=== PATIENT | female | born 1950 | race African-American/Black ===

== ENCOUNTER 2018-04-08 23:51 | Inpatient (IN) | payer MEDICARE, MEDICAID ==
[~2018-04-08] VITALS: Ht 154.9 cm; Wt 72.5 kg
[2018-04-09] MEDS ORDERED: LABETALOL HCL 5 MG/ML ML 20ML VIAL IV ONE ×2 (00:30→02:30)
[2018-04-09 00:47] LABS: Basophils # (auto) 0.1 uL; Basophils % (auto) 0.8 % (0.0-2.0); Eosinophils # (auto) 0.3 uL; Eosinophils % (auto) 3.5 % (0.0-7.0); Hematocrit 41.7 % (36.0-46.0); Lymphocytes # (auto) 3.3 uL; Lymphocytes % (auto) 37.5 % (10.0-50.0); Mean Corpuscular Hemoglobin 30.8 pg (28.0-32.0); Mean Corpuscular Hgb Conc. 33.5 g/dL (32.0-36.0); Monocytes # (auto) 0.8 uL; Monocytes % (auto) 9.3 % (0.0-12.0); Neutrophils # (auto) 4.3 uL; Neutrophils % (auto) 48.9 % (37.0-80.0); Nucleated Red Blood Cells % 0.1 %; Platelet Count (auto) 300 10^3/uL (140-450); Red Blood Cells 4.53 10^6/uL (4.0-5.20); Red Cell Distribution Width 13.7 % (11.8-14.3); White Blood Cell 8.9 10^3/uL (4.4-10.8)
[2018-04-09 01:01] LABS: INR 0.88 (0.9-1.15); Partial Thromboplastin Time 29.1 sec (23.78-33.04); Prothrombin Time 9.5 sec (9.27-12.13)
[2018-04-09 01:02] LABS: Alanine Aminotransferase 18 U/L (13-56); Albumin 3.6 g/dL (3.4-5.0); Anion Gap 10 (5-15); Aspartate Aminotransferase 10 U/L (15-37); BUN/Creatinine Ratio 16.4; Blood Urea Nitrogen 19 mg/dL (7-18); Calcium 8.6 mg/dL (8.5-10.1); Carbon Dioxide 25 mmol/L (21-32); Chloride 105 mmol/L (98-107); GFR African American 60 mL/min; GFR Non-African American 50 mL/min; Glucose 130 mg/dL (74-106); Potassium 3.4 mmol/L (3.5-5.1); Sodium 140 mmol/L (136-145)
[2018-04-09 01:07] LABS: Alkaline Phosphatase 104 U/L (45-117); Bilirubin, Total 0.3 mg/dL (0.2-1.0); Total Protein 8.1 g/dL (6.4-8.2)
[2018-04-09] MEDS ORDERED: ONDANSETRON HCL 4 MG/2 ML VIAL IV ONE (02:30)
[2018-04-09 03:23] LABS: Urine Bacteria NONE SEEN /hpf (None Seen); Urine Blood Negative /uL (Negative); Urine Specific Gravity 1.011 (1.001-1.035); Urine WBC <1 /hpf (0 - 5)
[2018-04-09 03:30] LABS: Amylase 35 U/L (25-115); Lipase 60 U/L (73-393)
[2018-04-09] MEDS ORDERED: NITROGLYCERIN 0.4 MG SL TAB SL PRN (04:30)
[2018-04-09] MEDS ORDERED: ONDANSETRON HCL 4 MG/2 ML VIAL IV PRN (04:30)
[2018-04-09] MEDS ORDERED: cloNIDine HCL 0.1 MG TAB PO PRN (04:30)
[2018-04-09] MEDS ORDERED: MORPHINE SULFATE 4 MG/ML SYR/VIAL IV PRN (04:30)
[2018-04-09] MEDS ORDERED: POTASSIUM CHL 20 Meq TABLET PO ONE (04:30)
[2018-04-09] MEDS ORDERED: TEMAZEPAM 15 MG CAP PO PRN (04:30)
[2018-04-09] MEDS: ACETAMINOPHEN 325 MG TAB PO PRN (06:12)
[2018-04-09] MEDS: HYDROcodone-ACET 5/325MG TAB PO PRN ×2 (09:14→17:54)
[2018-04-09] MEDS ORDERED: DEXTROSE (50%) 50ML SYRG IV PRN (09:45)
[2018-04-09] MEDS: HCTZ 25 MG TAB PO SCH (10:30)
[2018-04-09] MEDS: POTASSIUM CHL 10 Meq TABLET PO SCH (10:31)
[2018-04-09] MEDS: ENOXAPARIN SOD 40 MG/0.4 ML SYRINGE SC SCH (10:31)
[2018-04-09 10:39] LABS: Cholesterol 181 mg/dL (< 200); Triglycerides 80 mg/dL (< 150)
[2018-04-09 10:41] LABS: HDL Cholesterol 40 mg/dL (40-59); LDL Cholesterol 137 mg/dL (< 100)
[2018-04-09] MEDS ORDERED: INFLUENZA QUAD 2018-2019 0.5 ML SYRG IM ONE (11:15)
[2018-04-09] MEDS ORDERED: PNEUMOCOCCAL VACC POLYS 25 MCG/0.5 ML VIAL IM ONE (11:15)
[2018-04-09] MEDS: ACCU-CHEK COMFORT CURVE STRIP VI SCH ×3 (11:20→21:41)
[2018-04-09] MEDS: InsuLIN REG 1unit/0.01ml Soln (100units/ml) SC SCH ×3 (11:20→21:46)
[2018-04-09] MEDS: cloNIDine HCL 0.1 MG TAB PO PRN ×2 (11:25→21:41)
[2018-04-09] MEDS ORDERED: AZITHROMYCIN 250 MG TAB PO ONE (11:30)
[2018-04-09 12:00] VITALS: BP 163/79
[2018-04-09 16:00] VITALS: BP 127/65
[2018-04-09] MEDS ORDERED: ASPirin 81 mg TAB PO SCH (16:30)
[2018-04-09 21:30] VITALS: BP 156/75
[2018-04-09] MEDS: ATORVASTATIN 20 MG TAB PO SCH (21:40)
[2018-04-10 05:00] VITALS: BP 116/70
[2018-04-10 05:38] LABS: Basophils # (auto) 0.1 uL; Basophils % (auto) 0.9 % (0.0-2.0); Eosinophils # (auto) 0.2 uL; Eosinophils % (auto) 3.8 % (0.0-7.0); Hematocrit 38.7 % (36.0-46.0); Hemoglobin 13.1 g/dL (12.2-16.2); Lymphocytes # (auto) 2.3 uL; Lymphocytes % (auto) 34.9 % (10.0-50.0); Mean Corpuscular Hemoglobin 31.7 pg (28.0-32.0); Mean Corpuscular Hgb Conc. 33.9 g/dL (32.0-36.0); Mean Corpuscular Volume 93.6 fL (80.0-100.0); Monocytes # (auto) 0.5 uL; Monocytes % (auto) 8.3 % (0.0-12.0); Neutrophils # (auto) 3.4 uL; Neutrophils % (auto) 52.1 % (37.0-80.0); Nucleated Red Blood Cells % 0.2 %; Platelet Count (auto) 254 10^3/uL (140-450); Red Blood Cells 4.14 10^6/uL (4.0-5.20); Red Cell Distribution Width 13.8 % (11.8-14.3); White Blood Cell 6.6 10^3/uL (4.4-10.8)
[2018-04-10 06:01] LABS: Anion Gap 6 (5-15); Blood Urea Nitrogen 13 mg/dL (7-18); Calcium 8.4 mg/dL (8.5-10.1); Carbon Dioxide 28 mmol/L (21-32); Chloride 104 mmol/L (98-107); Glucose 97 mg/dL (74-106); Potassium 4.4 mmol/L (3.5-5.1); Sodium 138 mmol/L (136-145)
[2018-04-10 06:06] LABS: Alanine Aminotransferase 16 U/L (13-56); Alkaline Phosphatase 86 U/L (45-117); Aspartate Aminotransferase 27 U/L (15-37); BUN/Creatinine Ratio 12.7; Bilirubin, Total 0.5 mg/dL (0.2-1.0); GFR African American 70 mL/min; GFR Non-African American 58 mL/min; Total Protein 7.1 g/dL (6.4-8.2)
[2018-04-10] MEDS: ACCU-CHEK COMFORT CURVE STRIP VI SCH ×4 (06:09→21:09)
[2018-04-10] MEDS: InsuLIN REG 1unit/0.01ml Soln (100units/ml) SC SCH ×4 (06:11→21:13)
[2018-04-10 09:00] VITALS: BP 133/91
[2018-04-10] MEDS: AZITHROMYCIN 250 MG TAB PO SCH (09:48)
[2018-04-10] MEDS: POTASSIUM CHL 10 Meq TABLET PO SCH (09:48)
[2018-04-10] MEDS: HCTZ 25 MG TAB PO SCH (09:49)
[2018-04-10] MEDS: ENOXAPARIN SOD 40 MG/0.4 ML SYRINGE SC SCH (09:49)
[2018-04-10] MEDS: ASPirin 325 MG TAB PO SCH (09:49)
[2018-04-10] MEDS ORDERED: LEVOTHYROXINE SODIUM 112 MCG TAB PO ONE (11:45)
[2018-04-10 13:00] VITALS: BP 130/84
[2018-04-10 16:13] VITALS: BP 149/70
[2018-04-10] MEDS: ATORVASTATIN 20 MG TAB PO SCH (21:04)
[2018-04-10 22:00] VITALS: BP 113/77
[2018-04-11 05:00] VITALS: BP 152/61
[2018-04-11] MEDS: ACCU-CHEK COMFORT CURVE STRIP VI SCH ×3 (05:46→16:52)
[2018-04-11] MEDS: InsuLIN REG 1unit/0.01ml Soln (100units/ml) SC SCH ×3 (05:56→16:52)
[2018-04-11] MEDS ORDERED: LEVOTHYROXINE SODIUM 112 MCG TAB PO SCH ×2 (07:00)
[2018-04-11 09:00] VITALS: BP 158/76
[2018-04-11] MEDS: HCTZ 25 MG TAB PO SCH (09:11)
[2018-04-11] MEDS: POTASSIUM CHL 10 Meq TABLET PO SCH (09:11)
[2018-04-11] MEDS: ASPirin 325 MG TAB PO SCH (09:11)
[2018-04-11] MEDS: ENOXAPARIN SOD 40 MG/0.4 ML SYRINGE SC SCH (09:12)
[2018-04-11] MEDS: ACETAMINOPHEN 325 MG TAB PO PRN (09:12)
[2018-04-11] MEDS: AZITHROMYCIN 250 MG TAB PO SCH (09:12)
[2018-04-11] MEDS: HYDROcodone-ACET 5/325MG TAB PO PRN (11:10)
[2018-04-11 13:00] VITALS: BP 153/68
[2018-04-11 16:22] VITALS: BP 153/68
== END 2018-04-11 18:15 | disposition home health service (06) | DRG 65 ==
LOC: ER 23:53 → TELE 23:54 → TELE-CENTR 04-09 08:50
PROVIDERS: ADMIT Nurse Practitioner; ATTEND Family Medicine
DX: I63.512 Cerebral infarction due to unspecified occlusion or stenosis of left middle cerebral artery (principal); I16.1 Hypertensive emergency; I24.8 Other forms of acute ischemic heart disease; I63.81 Other cerebral infarction due to occlusion or stenosis of small artery; E11.22 Type 2 diabetes mellitus with diabetic chronic kidney disease; I25.119 Atherosclerotic heart disease of native coronary artery with unspecified angina pectoris; E87.6 Hypokalemia; E11.21 Type 2 diabetes mellitus with diabetic nephropathy; M15.9 Polyosteoarthritis, unspecified; I12.9 Hypertensive chronic kidney disease with stage 1 through stage 4 chronic kidney disease, or unspecified chronic kidney disease; R47.1 Dysarthria and anarthria; N18.3 Chronic kidney disease, stage 3 (moderate); J32.0 Chronic maxillary sinusitis; E03.9 Hypothyroidism, unspecified; E78.00 Pure hypercholesterolemia, unspecified; R29.701 NIHSS score 1; Z79.82 Long term (current) use of aspirin; Z88.1 Allergy status to other antibiotic agents; Z23 Encounter for immunization
CPT/HCPCS: 36415; 70450; 70551; 80053; 80061; 81001; 82150; 82962; 83036; 83690; 83880; 84443; 84484; 85025; 85610; 85730; 87040; 87070; 90674; 93005; 93306; 93886; 94761; 96374; 96375; G0378; J1815; J2405

== ENCOUNTER 2018-04-17 15:26 | Inpatient (IN) | payer MEDICARE, MEDICAID ==
[~2018-04-17] VITALS: Ht 154.9 cm; Wt 109.8 kg
[2018-04-17] MEDS ORDERED: ACETAMINOPHEN 500 MG TAB PO PRN (16:45)
[2018-04-17] MEDS ORDERED: KETOROLAC TROMETH 30 MG/ML 1ML VIAL IV PRN (16:45)
[2018-04-17] MEDS ORDERED: LORazepam 0.5 MG TAB PO PRN (16:45)
[2018-04-17] MEDS ORDERED: TEMAZEPAM 15 MG CAP PO PRN (16:45)
[2018-04-17] MEDS ORDERED: ONDANSETRON HCL 4 MG/2 ML VIAL IV PRN (16:45)
[2018-04-17] MEDS ORDERED: LACTULOSE 20Gm/30ML SOLN PO PRN (16:45)
[2018-04-17] MEDS ORDERED: DEXTROSE (50%) 50ML SYRG IV PRN (16:45)
[2018-04-17] MEDS ORDERED: LABETALOL HCL 5 MG/ML ML 20ML VIAL IV PRN (16:45)
[2018-04-17] MEDS ORDERED: traMADol HCL 50 MG TAB PO PRN (16:45)
[2018-04-17] MEDS ORDERED: MORPHINE SULFATE 4 MG/ML SYR/VIAL IV PRN (16:45)
[2018-04-17] MEDS ORDERED: NITROGLYCERIN 0.4 MG SL TAB SL PRN (16:45)
[2018-04-17] MEDS: InsuLIN REG 1unit/0.01ml Soln (100units/ml) SC SCH ×2 (17:00→22:00)
[2018-04-17 17:02] LABS: Basophils # (auto) 0.1 uL; Basophils % (auto) 0.6 % (0.0-2.0); Eosinophils # (auto) 0.3 uL; Eosinophils % (auto) 2.9 % (0.0-7.0); Hematocrit 42.2 % (36.0-46.0); Hemoglobin 14.1 g/dL (12.2-16.2); Lymphocytes # (auto) 2.3 uL; Lymphocytes % (auto) 22.8 % (10.0-50.0); Mean Corpuscular Hemoglobin 30.8 pg (28.0-32.0); Mean Corpuscular Hgb Conc. 33.5 g/dL (32.0-36.0); Mean Corpuscular Volume 91.9 fL (80.0-100.0); Monocytes # (auto) 0.8 uL; Monocytes % (auto) 7.9 % (0.0-12.0); Neutrophils # (auto) 6.6 uL; Neutrophils % (auto) 65.8 % (37.0-80.0); Nucleated Red Blood Cells % 0.1 %; Platelet Count (auto) 278 10^3/uL (140-450); Red Blood Cells 4.59 10^6/uL (4.0-5.20); Red Cell Distribution Width 13.4 % (11.8-14.3); White Blood Cell 10.1 10^3/uL (4.4-10.8)
[2018-04-17] MEDS: ACCU-CHEK COMFORT CURVE STRIP VI SCH ×2 (17:05→22:00)
[2018-04-17 17:18] LABS: Albumin 3.4 g/dL (3.4-5.0); BUN/Creatinine Ratio 15.2; Calcium 8.7 mg/dL (8.5-10.1); Potassium 3.4 mmol/L (3.5-5.1)
[2018-04-17 17:20] LABS: Bilirubin, Total 0.3 mg/dL (0.2-1.0)
[2018-04-17 17:26] LABS: Folate (Folic Acid) 6.31 ng/mL (5.38-24)
[2018-04-17 18:34] LABS: INR 0.93 (0.9-1.15); Partial Thromboplastin Time 30.9 sec (23.78-33.04)
[2018-04-17 22:24] VITALS: BP 183/73
[2018-04-17] MEDS: ATORVASTATIN 20 MG TAB PO SCH (22:55)
[2018-04-17] MEDS: METOPROLOL TARTRATE 50 MG TAB PO SCH (22:56)
[2018-04-17 23:00] VITALS: BP 183/73
[2018-04-18 03:00] VITALS: BP 137/69
[2018-04-18 03:54] LABS: Urine Bacteria NONE SEEN /hpf (None Seen); Urine Blood Negative /uL (Negative); Urine Specific Gravity 1.012 (1.001-1.035); Urine WBC <1 /hpf (0 - 5)
[2018-04-18 04:14] LABS: Alcohol, Urine < 3.0 mg/dL (0-5); Amphetamine Screen, Urine NEGATIVE (NEGATIVE); Barbiturate Scree,Urine NEGATIVE (NEGATIVE); Benzodiazephine Screen, Urine NEGATIVE (NEGATIVE); Cannabinoid Screen, Urine NEGATIVE (NEGATIVE); Cocaine Screen, Urine NEGATIVE (NEGATIVE); Opiate Scree,Urine NEGATIVE (NEGATIVE); Phencyclidine Screen, Urine NEGATIVE (NEGATIVE)
[2018-04-18 05:00] VITALS: BP 141/60
[2018-04-18] MEDS: LEVOTHYROXINE SODIUM 112 MCG TAB PO SCH (06:12)
[2018-04-18] MEDS: InsuLIN REG 1unit/0.01ml Soln (100units/ml) SC SCH ×4 (06:15→22:44)
[2018-04-18] MEDS: ACCU-CHEK COMFORT CURVE STRIP VI SCH ×4 (06:15→22:43)
[2018-04-18 09:00] VITALS: BP 132/53
[2018-04-18] MEDS: ENOXAPARIN SOD 40 MG/0.4 ML SYRINGE SC SCH (09:13)
[2018-04-18] MEDS: ASPirin-EC 325mg tab PO SCH (09:13)
[2018-04-18] MEDS: METOPROLOL TARTRATE 50 MG TAB PO SCH ×2 (09:13→21:23)
[2018-04-18] MEDS: PANTOPRAZOLE 40 MG TAB PO SCH (09:13)
[2018-04-18 13:00] VITALS: BP 145/69
[2018-04-18 17:00] VITALS: BP 155/63
[2018-04-18] MEDS: ATORVASTATIN 20 MG TAB PO SCH (21:16)
[2018-04-18 22:09] VITALS: BP 156/83
[2018-04-19 05:29] VITALS: BP 141/69
[2018-04-19] MEDS: LEVOTHYROXINE SODIUM 112 MCG TAB PO SCH (06:14)
[2018-04-19] MEDS: InsuLIN REG 1unit/0.01ml Soln (100units/ml) SC SCH ×4 (06:22→22:00)
[2018-04-19] MEDS: ACCU-CHEK COMFORT CURVE STRIP VI SCH ×4 (06:24→22:00)
[2018-04-19 09:00] VITALS: BP 138/60
[2018-04-19] MEDS: METOPROLOL TARTRATE 50 MG TAB PO SCH ×2 (09:51→22:41)
[2018-04-19] MEDS: PANTOPRAZOLE 40 MG TAB PO SCH (09:51)
[2018-04-19] MEDS: ASPirin-EC 325mg tab PO SCH (09:51)
[2018-04-19] MEDS: ENOXAPARIN SOD 40 MG/0.4 ML SYRINGE SC SCH (09:52)
[2018-04-19 13:00] VITALS: BP 137/63
[2018-04-19 17:00] VITALS: BP 158/74
[2018-04-19 22:00] VITALS: BP 145/60
[2018-04-19] MEDS: ATORVASTATIN 20 MG TAB PO SCH (22:40)
[2018-04-20 05:00] VITALS: BP 128/94
[2018-04-20] MEDS: LEVOTHYROXINE SODIUM 112 MCG TAB PO SCH (06:56)
[2018-04-20] MEDS: ACCU-CHEK COMFORT CURVE STRIP VI SCH ×4 (07:00→22:00)
[2018-04-20] MEDS: InsuLIN REG 1unit/0.01ml Soln (100units/ml) SC SCH ×4 (07:00→22:00)
[2018-04-20 09:00] VITALS: BP 138/70
[2018-04-20] MEDS: ASPirin-EC 325mg tab PO SCH (09:39)
[2018-04-20] MEDS: PANTOPRAZOLE 40 MG TAB PO SCH (09:40)
[2018-04-20] MEDS: METOPROLOL TARTRATE 50 MG TAB PO SCH ×2 (09:40→21:37)
[2018-04-20] MEDS: ENOXAPARIN SOD 40 MG/0.4 ML SYRINGE SC SCH (09:40)
[2018-04-20 13:00] VITALS: BP 142/60
[2018-04-20 17:00] VITALS: BP 138/65
[2018-04-20] MEDS: ATORVASTATIN 20 MG TAB PO SCH (21:37)
[2018-04-20 22:00] VITALS: BP 158/81
[2018-04-21 05:00] VITALS: BP 159/71
[2018-04-21 06:22] LABS: Basophils # (auto) 0 uL; Basophils % (auto) 0.7 % (0.0-2.0); Eosinophils # (auto) 0.4 uL; Hematocrit 39.3 % (36.0-46.0); Hemoglobin 13.2 g/dL (12.2-16.2); Lymphocytes # (auto) 2.3 uL; Lymphocytes % (auto) 32.7 % (10.0-50.0); Mean Corpuscular Hemoglobin 31.1 pg (28.0-32.0); Mean Corpuscular Hgb Conc. 33.5 g/dL (32.0-36.0); Mean Corpuscular Volume 92.9 fL (80.0-100.0); Monocytes # (auto) 0.5 uL; Monocytes % (auto) 7.1 % (0.0-12.0); Neutrophils # (auto) 3.7 uL; Neutrophils % (auto) 53.5 % (37.0-80.0); Nucleated Red Blood Cells % 0.1 %; Platelet Count (auto) 286 10^3/uL (140-450); Red Blood Cells 4.23 10^6/uL (4.0-5.20); Red Cell Distribution Width 13.2 % (11.8-14.3)
[2018-04-21 06:23] LABS: INR 0.91 (0.9-1.15); Partial Thromboplastin Time 30.3 sec (23.78-33.04); Prothrombin Time 9.8 sec (9.27-12.13)
[2018-04-21] MEDS: LEVOTHYROXINE SODIUM 112 MCG TAB PO SCH (06:33)
[2018-04-21] MEDS: ACCU-CHEK COMFORT CURVE STRIP VI SCH ×4 (06:33→22:00)
[2018-04-21] MEDS: InsuLIN REG 1unit/0.01ml Soln (100units/ml) SC SCH ×4 (06:34→22:00)
[2018-04-21 08:55] VITALS: BP 181/91
[2018-04-21] MEDS: ASPirin-EC 325mg tab PO SCH (09:40)
[2018-04-21] MEDS: PANTOPRAZOLE 40 MG TAB PO SCH (09:40)
[2018-04-21] MEDS: METOPROLOL TARTRATE 50 MG TAB PO SCH ×2 (09:41→22:00)
[2018-04-21] MEDS: ENOXAPARIN SOD 40 MG/0.4 ML SYRINGE SC SCH (10:00)
[2018-04-21 13:00] VITALS: BP_SYST 153; BP_SYST 194; BP_DIAS 74; BP_DIAS 86
[2018-04-21] MEDS ORDERED: FLUMAZENIL 0.1 MG/ML INJ 10ML MDV IV ONE (13:00)
[2018-04-21] MEDS ORDERED: MIDAZOLAM HCL 1MG/1ML-2 ML VIAL IV ONE (13:00)
[2018-04-21 17:00] VITALS: BP 139/66
[2018-04-21 22:00] VITALS: BP 155/68
[2018-04-21] MEDS: ATORVASTATIN 20 MG TAB PO SCH (22:00)
[2018-04-22 05:00] VITALS: BP 135/66
[2018-04-22] MEDS: ACCU-CHEK COMFORT CURVE STRIP VI SCH ×2 (06:40→11:27)
[2018-04-22] MEDS: LEVOTHYROXINE SODIUM 112 MCG TAB PO SCH (06:41)
[2018-04-22] MEDS: InsuLIN REG 1unit/0.01ml Soln (100units/ml) SC SCH ×2 (06:41→11:41)
[2018-04-22 08:00] VITALS: BP 168/75
[2018-04-22 09:00] VITALS: BP 168/75
[2018-04-22] MEDS: ASPirin-EC 325mg tab PO SCH ×2 (09:14→09:17)
[2018-04-22] MEDS: ENOXAPARIN SOD 40 MG/0.4 ML SYRINGE SC SCH (09:14)
[2018-04-22] MEDS: PANTOPRAZOLE 40 MG TAB PO SCH (09:15)
[2018-04-22] MEDS: METOPROLOL TARTRATE 50 MG TAB PO SCH (09:15)
[2018-04-22] MEDS ORDERED: CLOPIDOGREL BISULFATE 75 MG TAB PO SCH (10:00)
[2018-04-22] MEDS ORDERED: ASPI325T4 PO (12:07)
[2018-04-22] MEDS ORDERED: ATO40T PO (12:07)
[2018-04-22 13:00] VITALS: BP 141/65
[2018-04-22 13:12] VITALS: BP 141/65
== END 2018-04-22 15:10 | disposition home health service (06) | DRG 304 ==
LOC: ER 15:32 → TELE 16:38 → TELE-CENTR 21:38
PROVIDERS: ADMIT Internal Medicine; ATTEND Family Medicine
PROC: B246ZZ4 Ultrasonography of Right and Left Heart, Transesophageal (ICD-10-PCS; principal; 2018-04-21)
DX: I16.0 Hypertensive urgency (principal); I63.9 Cerebral infarction, unspecified; I69.351 Hemiplegia and hemiparesis following cerebral infarction affecting right dominant side; Z68.42 Body mass index [BMI] 45.0-49.9, adult; I25.10 Atherosclerotic heart disease of native coronary artery without angina pectoris; E78.5 Hyperlipidemia, unspecified; E66.01 Morbid (severe) obesity due to excess calories; E03.9 Hypothyroidism, unspecified; H40.9 Unspecified glaucoma; J32.0 Chronic maxillary sinusitis; E11.9 Type 2 diabetes mellitus without complications; I10 Essential (primary) hypertension; E87.6 Hypokalemia; E78.00 Pure hypercholesterolemia, unspecified; I07.1 Rheumatic tricuspid insufficiency; Z79.02 Long term (current) use of antithrombotics/antiplatelets; Z82.49 Family history of ischemic heart disease and other diseases of the circulatory system; Z83.3 Family history of diabetes mellitus; Z81.1 Family history of alcohol abuse and dependence; Z81.8 Family history of other mental and behavioral disorders; Z91.19 Patient's noncompliance with other medical treatment and regimen; Z98.51 Tubal ligation status; Z90.89 Acquired absence of other organs; Z79.82 Long term (current) use of aspirin; Z88.8 Allergy status to other drugs, medicaments and biological substances
CPT/HCPCS: 36415; 70450; 70551; 71045; 80053; 80307; 81001; 82550; 82746; 82962; 83036; 83735; 84443; 85025; 85610; 85652; 85730; 86850; 86900; 86901; 87081; 93005; 93312; 94761; 99152; G0378; J1815; J1885; J2250

== ENCOUNTER → 2018-05-06 | Outpatient (CLI) | payer MEDICARE, MEDICAID ==
[~2018-05-06] MED LIST: ASPI325T4 PO; ATO40T PO; IOHEXOL 350 MG/ML 100ML IJ ONE; SODIUM CHLORIDE 0.9% 1,000 ML IV SCH
[2018-05-06 09:11] VITALS: BP 178/65
[2018-05-06 10:15] VITALS: BP 108/63
== END | disposition home or self-care (01) ==
LOC: Rad HDHVI 08:59
PROVIDERS: ATTEND Internal Medicine Cardiovascular Disease
DX: I66.9 Occlusion and stenosis of unspecified cerebral artery (principal); I12.9 Hypertensive chronic kidney disease with stage 1 through stage 4 chronic kidney disease, or unspecified chronic kidney disease; E11.22 Type 2 diabetes mellitus with diabetic chronic kidney disease; N18.3 Chronic kidney disease, stage 3 (moderate); E11.21 Type 2 diabetes mellitus with diabetic nephropathy; I25.10 Atherosclerotic heart disease of native coronary artery without angina pectoris; J32.0 Chronic maxillary sinusitis; E66.01 Morbid (severe) obesity due to excess calories; E78.5 Hyperlipidemia, unspecified; E03.9 Hypothyroidism, unspecified; E78.00 Pure hypercholesterolemia, unspecified; M17.11 Unilateral primary osteoarthritis, right knee; I07.1 Rheumatic tricuspid insufficiency; Z68.42 Body mass index [BMI] 45.0-49.9, adult; Z79.02 Long term (current) use of antithrombotics/antiplatelets; Z79.82 Long term (current) use of aspirin; Z86.73 Personal history of transient ischemic attack (TIA), and cerebral infarction without residual deficits
CPT/HCPCS: 70496; 96360; G0463; J7030; Q9967

== ENCOUNTER → 2018-05-20 | Outpatient (CLI) | payer MEDICARE, MEDICAID ==
[~2018-05-20] MED LIST changes: -IOHEXOL 350 MG/ML 100ML IJ ONE; -SODIUM CHLORIDE 0.9% 1,000 ML IV SCH
== END | disposition home or self-care (01) ==
LOC: LAB 12:03
PROVIDERS: ATTEND Internal Medicine
DX: E03.9 Hypothyroidism, unspecified (principal)
CPT/HCPCS: 36415; 84443

== ENCOUNTER → 2018-06-04 | Outpatient (CLI) | payer MEDICARE, MEDICAID ==
[~2018-06-04] VITALS: Ht 154.9 cm; Wt 99.8 kg
[~2018-06-04] MED LIST changes: +ADENOSINE 84 MG in GIVE UN-DILUTED 0 ML IV ONE; +ADENOSINE 90 MG/30 ML INJ IV ONE
== END | disposition home or self-care (01) ==
LOC: Rad HDHVI 13:41
PROVIDERS: ATTEND Internal Medicine Cardiovascular Disease
DX: I10 Essential (primary) hypertension (principal); I63.9 Cerebral infarction, unspecified; E11.9 Type 2 diabetes mellitus without complications
CPT/HCPCS: 78452; 93005; 96374; 96375; A9500; J0153

== ENCOUNTER → 2018-06-23 | Outpatient (CLI) | payer MEDICARE, MEDICAID ==
[~2018-06-23] MED LIST changes: -ADENOSINE 84 MG in GIVE UN-DILUTED 0 ML IV ONE; -ADENOSINE 90 MG/30 ML INJ IV ONE
== END | disposition home or self-care (01) ==
LOC: LAB 10:53
PROVIDERS: ATTEND Internal Medicine
DX: Z12.11 Encounter for screening for malignant neoplasm of colon (principal)
CPT/HCPCS: 82270

== ENCOUNTER → 2018-06-23 | Outpatient (CLI) | payer MEDICARE, MEDICAID ==
[2018-06-23 11:15] VITALS: BP_SYST 150; BP_SYST 159; BP_DIAS 63; BP_DIAS 68
--- NOTE | 2018-06-23 11:15 | NUR ---
EECP This will be patient 1st day of EECP. EKG has been completed and sign of by Zena MOSHER. Patient has a Hx of: CVA SOB DIABETES First BP taken on her Right arm is at 150/63 with a heart rate of 68bpm. Patient states she did not take her BP medication this AM. At this time patient denies any other symptoms or discomfort. First Pleth at 1 min into Tx.EECP pressure will slowly be increase up to 120 if tolerable. 2nd pleth at 36 min into Tx patient is tolerating Tx pressure at 120 well.Patient denies any symptoms or discomfort at this time.Monitor shows excellent pleth valves with a heart rate of 67bpm. At 37 min into Tx patient needs a restroom break. 3rd and final pleth at 56 min into Tx patient is doing well at this time.Monitor shows Arrhythmias with a heart rate of 68bpm.Patient denies any chest pain,SOB,Fatigue at this time.Patient has 4 min left till her Tx is completed for the day. Last BP check on her Left arm is at 159/68 with a heart rate of 64bpm. Patient will follow up with CHF.
[2018-06-23 12:29] VITALS: BP 150/63
[2018-06-23 12:43] VITALS: BP 159/68
--- NOTE | 2018-06-23 12:43 | NUR ---
EDUCATED ON ARGINEXT SUPPLEMENT FOR BEGINNING EECP THERAPY. BASELINE EKG DONE. GIVEN ARGINEXT 2 SCOOPS WITH WARM WATER. EDUCATION DONE BY GOPI MOSHER. ADDITIONAL QUESTIONS DENIED. Discharge Instructions See e-MAR for any mediations given with this visit. Patient education given on disease process. Patient verbalized understanding. Previous labs reviewed. Patient discharged in stable condition with after care instructions and follow up appointment.
== END | disposition home or self-care (01) ==
LOC: CHF HDHVI 10:49
PROVIDERS: ATTEND Internal Medicine Cardiovascular Disease
DX: I25.728 Atherosclerosis of autologous artery coronary artery bypass graft(s) with other forms of angina pectoris (principal); I11.0 Hypertensive heart disease with heart failure; I50.42 Chronic combined systolic (congestive) and diastolic (congestive) heart failure; R06.02 Shortness of breath; E11.9 Type 2 diabetes mellitus without complications; I63.9 Cerebral infarction, unspecified
CPT/HCPCS: 93005; G0166; G0463

== ENCOUNTER → 2018-06-26 | Outpatient (CLI) | payer MEDICARE, MEDICAID ==
[2018-06-26 10:54] VITALS: BP_SYST 140; BP_SYST 158; BP_DIAS 66; BP_DIAS 80
--- NOTE | 2018-06-26 11:04 | NUR ---
EECP Tx# 2 First BP check on left arm is at 158/66 with a heart rate of 56bpm. Patient took her medications 1 hour before coming in to her Tx. Arginext has been taken before coming in to her Tx. Patient c/o Fatigue 08/24. 1st pleth at 1 min into Tx patient EECP pressure will increase if tolerable. At 10 min into Tx patient requested for Pressure to be reduce patient can't tolerate Tx pressure at 200.EECP pressure will be reduce to 160 if tolerable.We will continue to monitor patient through her Tx if any changes occur. 2nd pleth at 28 min into Tx patient is tolerating Tx pressure at 160 well with no discomfort at this time.Monitor shows excellent pleth valves with a heart rate of 61bpm. At 29 min into Tx patient needs a restroom break. 3rd and final pleth at 51 min into Tx patient is doing well with Tx pressure at 160 .Monitor shows excellent pleth valves with a heart rate of 58bpm.Patient has 9 min left till her Tx is completed for the day. Last BP check on her left arm is at 140/80 with a HR of 62bpm. Patient denies any symptoms or discomfort at this time.
== END | disposition home or self-care (01) ==
LOC: CHF HDHVI 10:43
PROVIDERS: ATTEND Internal Medicine Cardiovascular Disease
DX: I25.728 Atherosclerosis of autologous artery coronary artery bypass graft(s) with other forms of angina pectoris (principal); I11.0 Hypertensive heart disease with heart failure; I50.42 Chronic combined systolic (congestive) and diastolic (congestive) heart failure; E11.9 Type 2 diabetes mellitus without complications; Z86.73 Personal history of transient ischemic attack (TIA), and cerebral infarction without residual deficits
CPT/HCPCS: G0166

== ENCOUNTER → 2018-07-21 | Outpatient (CLI) | payer MEDICARE, MEDICAID ==
[2018-07-21 09:21] VITALS: BP_SYST 139; BP_SYST 140; BP_DIAS 60; BP_DIAS 66
--- NOTE | 2018-07-21 09:21 | NUR ---
EECP Tx# 3 First BP check on his Left arm is at 139/60 with a heart rate of 72bpm. Patient denies any symptoms or discomfort at this time. Arginext was taken before coming in to her Tx. 1st pleth at 1 min into Tx EECP pressure will slowly increase if tolerable. 2nd pleth at 24 min into Tx patient is tolerating Tx pressure at 200 well.Patient denies any symptoms or discomfort at this time.Monitor shows good pleth valves with a heart rate of 72bpm. 3rd and final pleth at 42 min into Tx patient is doing well at this time.Monitor shows a good ekg and waveforms with good pleth valves and a heart rate of 74bpm. At 44 min into Tx patient requested Tx to stop.Daughter was picking her up.Per patient can't stay to complete Tx. Last BP and HR check on her left arm is at 140/66 with a heart rate of 71bpm. Patient denies any symptoms or discomfort at this time.
== END | disposition home or self-care (01) ==
LOC: CHF HDHVI 08:48
PROVIDERS: ATTEND Internal Medicine Cardiovascular Disease
DX: I25.728 Atherosclerosis of autologous artery coronary artery bypass graft(s) with other forms of angina pectoris (principal); I11.0 Hypertensive heart disease with heart failure; I50.42 Chronic combined systolic (congestive) and diastolic (congestive) heart failure; E11.9 Type 2 diabetes mellitus without complications; I63.9 Cerebral infarction, unspecified
CPT/HCPCS: G0166

== ENCOUNTER → 2018-07-23 | Outpatient (CLI) | payer MEDICARE, MEDICAID ==
[2018-07-23 09:29] VITALS: BP_SYST 143; BP_SYST 147; BP_DIAS 68; BP_DIAS 70
--- NOTE | 2018-07-23 09:29 | NUR ---
EECP Tx# 4 First BP check on his Left arm is at 147/68 with a heart rate of 65bpm. Patient denies any symptoms or discomfort at this time. Arginext was taken before coming in to her Tx. 1st pleth at 24 min into Tx EECP pressure will slowly increase if tolerable. 2nd pleth at 45 min into Tx Patient EECP pressure will decrease patient can't tolerate Tx pressure at 200 at this time.Monitor shows excellent pleth valves with a heart rate of 60bpm. Restroom break at 48 min into Tx. 3rd and final pleth at 57 min into Tx patient is doing well at this time.Patient is tolerating Tx pressure at 160 well with no complaints or discomfort at this time.Monitor shows a good ekg and waveforms with excellent pleth valves and a heart rate of 61bpm.Patient has 3 min left till her Tx is completed for the day. Last BP and HR check on her left arm is at 143/70 with a heart rate of 60bpm. Patient denies any symptoms or discomfort at this time.
== END | disposition home or self-care (01) ==
LOC: CHF HDHVI 09:10
PROVIDERS: ATTEND Internal Medicine Cardiovascular Disease
DX: I25.728 Atherosclerosis of autologous artery coronary artery bypass graft(s) with other forms of angina pectoris (principal); I11.0 Hypertensive heart disease with heart failure; I50.42 Chronic combined systolic (congestive) and diastolic (congestive) heart failure; I63.9 Cerebral infarction, unspecified; E11.9 Type 2 diabetes mellitus without complications
CPT/HCPCS: G0166

== ENCOUNTER → 2018-07-25 | Outpatient (CLI) | payer MEDICARE, MEDICAID ==
[2018-07-25 09:50] VITALS: BP_SYST 139; BP_SYST 140; BP_DIAS 57; BP_DIAS 62
--- NOTE | 2018-07-25 09:50 | NUR ---
EECP Tx# 5 First BP check on his Left arm is at 139/57 with a heart rate of 66bpm. Patient denies any symptoms or discomfort at this time. Arginext was taken before coming in to her Tx. 1st pleth at 1 min into Tx EECP pressure will slowly increase if tolerable. 2nd pleth at 25 min into Tx Patient is tolerating Tx pressure at 160 well with no discomfort at this time.Monitor shows a good ekg and waveforms with a heart rate of 70bpm. At 30 min into Tx patient requested Tx to be Stop early for Personal reasons. Tx stopped at 30 min into Tx. Last BP and HR check on left arm is at 140/62 with a heart rate of 64bpm. Patient denies any symptoms or discomfort at this time. Unable to record a 3rd pleth for this Tx. Last BP and HR check on left arm is at 140/62 with a heart rate of 64bpm. Patient denies any symptoms or discomfort at this time.
== END | disposition home or self-care (01) ==
LOC: CHF HDHVI 09:26
PROVIDERS: ATTEND Internal Medicine Cardiovascular Disease
DX: I25.728 Atherosclerosis of autologous artery coronary artery bypass graft(s) with other forms of angina pectoris (principal); I11.0 Hypertensive heart disease with heart failure; I50.42 Chronic combined systolic (congestive) and diastolic (congestive) heart failure; E11.9 Type 2 diabetes mellitus without complications; I63.9 Cerebral infarction, unspecified
CPT/HCPCS: G0166

== ENCOUNTER → 2018-07-28 | Outpatient (CLI) | payer MEDICARE, MEDICAID ==
[2018-07-28 09:03] VITALS: BP_SYST 130; BP_SYST 146; BP_DIAS 63; BP_DIAS 72
--- NOTE | 2018-07-28 09:03 | NUR ---
EECP Tx# 6 First BP check on his Left arm is at 130/63 with a heart rate of 73bpm. Patient denies any symptoms or discomfort at this time. Arginext was taken before coming in to her Tx. 1st pleth at 1 min into Tx EECP pressure will slowly increase if tolerable. 2nd pleth at 38 min into Tx Patient is tolerating Tx pressure at 160 well with no discomfort at this time.Monitor shows a good ekg and waveforms with a heart rate of 66bpm. 3rd and final pleth at 50 min into Tx monitor shows a good ekg and waveforms with a heart rate of 66bpm. Patient has 10 min left till his Tx is completed for the day. Last BP check on his Left arm is at 146/72 with a heart rate of 63bpm. Patient denies any symptoms or discomfort at this moment.
== END | disposition home or self-care (01) ==
LOC: CHF HDHVI 08:55
PROVIDERS: ATTEND Internal Medicine Cardiovascular Disease
DX: I25.728 Atherosclerosis of autologous artery coronary artery bypass graft(s) with other forms of angina pectoris (principal); I11.0 Hypertensive heart disease with heart failure; I50.42 Chronic combined systolic (congestive) and diastolic (congestive) heart failure; I63.9 Cerebral infarction, unspecified; E11.9 Type 2 diabetes mellitus without complications
CPT/HCPCS: G0166

== ENCOUNTER → 2018-08-01 | Outpatient (CLI) | payer MEDICARE, MEDICAID ==
[2018-08-01 09:34] VITALS: BP_SYST 136; BP_SYST 140; BP_DIAS 70; BP_DIAS 78
--- NOTE | 2018-08-01 09:34 | NUR ---
EECP Tx# 7 First BP check on his Left arm is at 136/70 with a heart rate of 62bpm. Patient denies any symptoms or discomfort at this time. Arginext was taken before coming in to her Tx. 1st pleth at 1 min into Tx EECP pressure will slowly increase if tolerable. 2nd pleth at 43 min into Tx Patient is tolerating Tx pressure at 160 well with no discomfort at this time.Patient at this time can't tolerate Tx higher than 160.Monitor shows excellent pleth valves with a heart rate of 62bpm. 3rd and final pleth at 55 min into Tx monitor shows a good ekg and waveforms with excellent pleth valves and a heart rate of 63bpm.Patient has 5 min left till her Tx is completed for the day. Last BP check on his Left arm is at 140/78 with a heart rate of 61bpm. Patient denies any symptoms or discomfort at this moment.
== END | disposition home or self-care (01) ==
LOC: Rad HDHVI 08:56
PROVIDERS: ATTEND Internal Medicine Cardiovascular Disease
DX: I25.728 Atherosclerosis of autologous artery coronary artery bypass graft(s) with other forms of angina pectoris (principal); I63.9 Cerebral infarction, unspecified; E11.9 Type 2 diabetes mellitus without complications; I11.0 Hypertensive heart disease with heart failure; I50.42 Chronic combined systolic (congestive) and diastolic (congestive) heart failure
CPT/HCPCS: G0166

== ENCOUNTER → 2018-08-04 | Outpatient (CLI) | payer MEDICARE, MEDICAID ==
[2018-08-04 08:57] VITALS: BP_SYST 134; BP_SYST 152; BP_DIAS 63; BP_DIAS 73
--- NOTE | 2018-08-04 09:00 | NUR ---
EECP Tx# 8 First BP check on his Left arm is at 152/73 with a heart rate of 67bpm. Patient denies any symptoms or discomfort at this time. Arginext was taken before coming in to her Tx. 1st pleth at 1 min into Tx EECP pressure will slowly increase if tolerable. 2nd pleth at 32 min into Tx Patient is tolerating Tx pressure at 160 well with no discomfort at this time.Patient at this time can't tolerate Tx higher than 160.Monitor shows a good ekg and waveforms with good pleth valves and a heart rate of 68bpm. 3rd and final pleth at 47 min into Tx monitor shows a good ekg and waveforms with good pleth valves and a heart rate of 67bpm.Patient has 13 min left till her Tx is completed for the day. Last BP check on his Left arm is at 134/63 with a heart rate of 64bpm. Patient denies any symptoms or discomfort at this moment.
== END | disposition home or self-care (01) ==
LOC: CHF HDHVI 08:52
PROVIDERS: ATTEND Internal Medicine Cardiovascular Disease
DX: I25.728 Atherosclerosis of autologous artery coronary artery bypass graft(s) with other forms of angina pectoris (principal); I11.0 Hypertensive heart disease with heart failure; I50.42 Chronic combined systolic (congestive) and diastolic (congestive) heart failure; E11.9 Type 2 diabetes mellitus without complications; I63.9 Cerebral infarction, unspecified
CPT/HCPCS: G0166

== ENCOUNTER → 2018-08-08 | Outpatient (CLI) | payer MEDICARE, MEDICAID ==
[2018-08-08 08:59] VITALS: BP_SYST 133; BP_SYST 141; BP_DIAS 67; BP_DIAS 78
--- NOTE | 2018-08-08 08:59 | NUR ---
EECP Tx# 9 First BP check on her Left arm is at 133/67 with a heart rate of 64bpm.Patient denies any chest pain,SOB,Fatigue or any other symptoms at this time.Arginext was taken before coming in to her Tx.Medications are the same no new changes at this time.Patient EECP pressure will slowly increase if tolerable. Patient is doing well with her Tx patient is tolerating Tx pressure at 160.Patient can't tolerate Tx pressure higher than 160 at this time.Patient denies any symptoms or discomfort at this moment. Monitor shows good pleth valves.Patient denies any symptoms or discomfort at this moment. Restroom break at 54 min into Tx.Patient has 6 min left till her Tx is completed for the day. Last BP check on her Left arm is at 141/78 with a heart rate of 63bpm. Patient denies any chest pain,SOB,Fatigue at this time.
== END | disposition home or self-care (01) ==
LOC: CHF HDHVI 08:53
PROVIDERS: ATTEND Internal Medicine Cardiovascular Disease
DX: I25.728 Atherosclerosis of autologous artery coronary artery bypass graft(s) with other forms of angina pectoris (principal); I63.9 Cerebral infarction, unspecified; E11.9 Type 2 diabetes mellitus without complications; I11.0 Hypertensive heart disease with heart failure; I50.42 Chronic combined systolic (congestive) and diastolic (congestive) heart failure; Z98.61 Coronary angioplasty status
CPT/HCPCS: G0166

== ENCOUNTER → 2018-08-11 | Outpatient (CLI) | payer MEDICARE, MEDICAID ==
[2018-08-11 09:10] VITALS: BP_SYST 136; BP_SYST 158; BP_DIAS 74; BP_DIAS 76
--- NOTE | 2018-08-11 09:10 | NUR ---
EECP Tx# 10 First BP check on her Right arm is at 158/74 with a heart rate of 74bpm.Patient denies any chest pain,SOB,Fatigue or any other symptoms at this time.Arginext was taken before coming in to her Tx.Medications are the same no new changes at this time.Patient EECP pressure will slowly increase if tolerable. Patient is doing well with her Tx patient is tolerating Tx pressure at 160.Patient can't tolerate Tx pressure higher than 160 at this time.Patient denies any symptoms or discomfort at this moment. Monitor shows a good ekg and waveforms with good pleth valves.Patient denies any symptoms or discomfort at this moment. Last BP check on her Left arm is at 136/76 with a heart rate of 74bpm. Patient denies any chest pain,SOB,Fatigue at this time.
== END | disposition home or self-care (01) ==
LOC: CHF HDHVI 08:58
PROVIDERS: ATTEND Internal Medicine Cardiovascular Disease
DX: I25.728 Atherosclerosis of autologous artery coronary artery bypass graft(s) with other forms of angina pectoris (principal); I11.0 Hypertensive heart disease with heart failure; I50.42 Chronic combined systolic (congestive) and diastolic (congestive) heart failure; I63.9 Cerebral infarction, unspecified; E11.9 Type 2 diabetes mellitus without complications
CPT/HCPCS: G0166

== ENCOUNTER → 2018-09-29 | Outpatient (CLI) | payer MEDICARE, MEDICAID ==
[2018-09-29 10:14] LABS: BUN/Creatinine Ratio 19.1; Calcium 8.8 mg/dL (8.5-10.1); Potassium 3.4 mmol/L (3.5-5.1)
== END | disposition home or self-care (01) ==
LOC: LAB 09:17
PROVIDERS: ATTEND Internal Medicine
DX: E03.9 Hypothyroidism, unspecified (principal); M54.2 Cervicalgia
CPT/HCPCS: 36415; 80048; 84443

== ENCOUNTER → 2018-11-11 | Outpatient (CLI) | payer MEDICARE, MEDICAID ==
[2018-11-11 09:43] LABS: Potassium 3.7 mmol/L (3.5-5.1)
[2018-11-11 09:50] LABS: Albumin 3.4 g/dL (3.4-5.0); Bilirubin, Total 0.5 mg/dL (0.2-1.0); Calcium 8.7 mg/dL (8.5-10.1); Total Protein 7.5 g/dL (6.4-8.2)
== END | disposition home or self-care (01) ==
LOC: LAB 07:49
PROVIDERS: ATTEND Internal Medicine
DX: E11.9 Type 2 diabetes mellitus without complications (principal); E03.9 Hypothyroidism, unspecified; I10 Essential (primary) hypertension
CPT/HCPCS: 36415; 80053; 80061; 82043

== ENCOUNTER → 2019-01-29 | Outpatient (CLI) | payer MEDICARE, MEDICAID ==
[2019-01-29 10:43] LABS: Basophils # (auto) 0 uL; Basophils % (auto) 0.9 % (0.0-2.0); Eosinophils # (auto) 0.2 uL; Eosinophils % (auto) 3.4 % (0.0-7.0); Hematocrit 40.5 % (36.0-46.0); Hemoglobin 13.6 g/dL (12.2-16.2); Lymphocytes # (auto) 1.6 uL; Lymphocytes % (auto) 30.4 % (10.0-50.0); Mean Corpuscular Hemoglobin 30.5 pg (28.0-32.0); Mean Corpuscular Hgb Conc. 33.6 g/dL (32.0-36.0); Mean Corpuscular Volume 90.8 fL (80.0-100.0); Monocytes # (auto) 0.3 uL; Monocytes % (auto) 6.3 % (0.0-12.0); Neutrophils # (auto) 3.1 uL; Nucleated Red Blood Cells % 0.2 %; Platelet Count (auto) 245 10^3/uL (140-450); Red Blood Cells 4.47 10^6/uL (4.0-5.20); Red Cell Distribution Width 13.3 % (11.8-14.3); White Blood Cell 5.2 10^3/uL (4.4-10.8)
[2019-01-29 11:07] LABS: Potassium 3.9 mmol/L (3.5-5.1)
[2019-01-29 11:20] LABS: Albumin 3.4 g/dL (3.4-5.0); BUN/Creatinine Ratio 20.2; Bilirubin, Total 0.6 mg/dL (0.2-1.0); CRP High Sensitivity 1.15 mg/dL (< 0.3); Calcium 8.9 mg/dL (8.5-10.1); Total Protein 7.9 g/dL (6.4-8.2); Uric Acid 7.1 mg/dL (2.6-6.0)
== END | disposition home or self-care (01) ==
LOC: LAB 09:54
PROVIDERS: ATTEND Internal Medicine
DX: E11.9 Type 2 diabetes mellitus without complications (principal); M17.0 Bilateral primary osteoarthritis of knee; M79.671 Pain in right foot; E03.9 Hypothyroidism, unspecified; I10 Essential (primary) hypertension
CPT/HCPCS: 36415; 80053; 84443; 84550; 85025; 85652; 86141

== ENCOUNTER 2019-03-20 06:18 | Day surgery (SDC) | payer MEDICARE, MEDICAID ==
[~2019-03-20] VITALS: Ht 154.9 cm; Wt 99.8 kg
[~2019-03-20 06:18] MED LIST changes: +AMLO10TA13 PO; -ASPI325T4 PO; +CLOP75TA28 PO; +HYDR25TA4 PO; +LEVO125T7 PO; +METO-158 PO
[2019-03-20] MEDS ORDERED: ceFAZolin 1GM/50ML 50 ML IV ONE (07:12)
[2019-03-20] MEDS ORDERED: LIDOCAINE 1% (LOCAL ANESTH.) PF 5ml SDV ONE (07:35)
[2019-03-20] MEDS ORDERED: SUCCINYLCHOLINE CHLORIDE 20 MG/ML 10ML VIAL IV ONE (07:35)
[2019-03-20] MEDS ORDERED: HYDROmorphone HCL 2 MG/ML VL IV PRN ×2 (07:45)
[2019-03-20] MEDS ORDERED: NALOXONE HCL 0.4 MG/ML VIAL IV PRN (07:45)
[2019-03-20] MEDS ORDERED: ONDANSETRON HCL 4 MG/2 ML VIAL IV PRN (07:45)
[2019-03-20] MEDS ORDERED: hydrALAZINE HCL 20 MG/ML VL IV PRN (07:45)
[2019-03-20] MEDS ORDERED: MIDAZOLAM HCL 1MG/1ML-2 ML VIAL ONE (07:47)
[2019-03-20] MEDS ORDERED: METOCLOPRAMIDE HCL 5MG/ml INJ 2ml VIAL ONE (07:49)
[2019-03-20] MEDS ORDERED: PROPOFOL 10 MG/ML 20 ML IV ONE (07:51)
[2019-03-20] MEDS ORDERED: ROCURONIUM 10MG/ML 10ML VIAL IV ONE (07:51)
[2019-03-20] MEDS ORDERED: fentaNYL CITRATE 100 MCG/2 ML VL ONE (08:02)
[2019-03-20] MEDS ORDERED: NEOSTIGMINE 1 MG/ML INJ (10mg/10ML VIAL) ONE (08:22)
[2019-03-20] MEDS ORDERED: GLYCOPYRROLATE 0.2 MG/ML 1ML VIAL ONE (08:22)
[2019-03-20] MEDS ORDERED: LACTATED RINGER'S 1,000 ML IV SCH (08:30)
[2019-03-20 09:06] VITALS: BP 138/57
== END 2019-03-20 09:12 | disposition home or self-care (01) ==
LOC: SUR 06:18
PROVIDERS: ATTEND Specialist
DX: N95.0 Postmenopausal bleeding (principal); C54.1 Malignant neoplasm of endometrium; N88.2 Stricture and stenosis of cervix uteri; I10 Essential (primary) hypertension; E03.9 Hypothyroidism, unspecified; G47.33 Obstructive sleep apnea (adult) (pediatric); E66.9 Obesity, unspecified; E11.39 Type 2 diabetes mellitus with other diabetic ophthalmic complication; H42 Glaucoma in diseases classified elsewhere; Z86.73 Personal history of transient ischemic attack (TIA), and cerebral infarction without residual deficits; Z88.1 Allergy status to other antibiotic agents; Z79.899 Other long term (current) drug therapy; Z79.01 Long term (current) use of anticoagulants; Z68.41 Body mass index [BMI] 40.0-44.9, adult; Z98.51 Tubal ligation status; Z98.890 Other specified postprocedural states
CPT/HCPCS: 58558; 86850; 86900; 86901; 88305; 88342; 93005; J0330; J0690; J2250; J2704; J2765; J3010

== ENCOUNTER 2019-10-20 17:48 | Inpatient (IN) | payer MEDICARE, MEDICAID ==
[~2019-10-20] VITALS: Ht 154.9 cm; Wt 104.0 kg
[2019-10-20 18:53] LABS: Basophils # (auto) 0.1 10 ^3/uL (0-0.2); Eosinophils # (auto) 0.3 10 ^3/uL (0-0.8); Eosinophils % (auto) 4.5 % (0.0-7.0); Hematocrit 40.6 % (36.0-46.0); Hemoglobin 13.6 g/dL (12.2-16.2); Lymphocytes # (auto) 2.4 10 ^3/uL (0.4-5.4); Mean Corpuscular Hemoglobin 30.1 pg (28.0-32.0); Mean Corpuscular Hgb Conc. 33.4 g/dL (32.0-36.0); Mean Corpuscular Volume 90.1 fL (80.0-100.0); Monocytes # (auto) 0.6 10 ^3/uL (0-1.3); Monocytes % (auto) 7.1 % (0.0-12.0); Neutrophils # (auto) 4.4 10 ^3/uL (1.6-8.6); Neutrophils % (auto) 56.4 % (37.0-80.0); Nucleated Red Blood Cells % 0.2 %; Platelet Count (auto) 303 10^3/uL (140-450); Red Blood Cells 4.51 10^6/uL (4.0-5.20); Red Cell Distribution Width 13.9 % (11.8-14.3); White Blood Cell 7.8 10^3/uL (4.4-10.8)
[2019-10-20 19:08] LABS: Alanine Aminotransferase 18 U/L (13-56); Albumin 3.5 g/dL (3.4-5.0); Anion Gap 6 (5-15); Aspartate Aminotransferase 10 U/L (15-37); BUN/Creatinine Ratio 12.1; Blood Urea Nitrogen 12 mg/dL (7-18); Calcium 8.7 mg/dL (8.5-10.1); Carbon Dioxide 28 mmol/L (21-32); Chloride 104 mmol/L (98-107); GFR African American 72 mL/min; GFR Non-African American 59 mL/min; Glucose 97 mg/dL (74-106); Magnesium 1.8 mg/dL (1.6-2.6); Potassium 3.4 mmol/L (3.5-5.1); Sodium 138 mmol/L (136-145)
[2019-10-20 19:13] LABS: Alkaline Phosphatase 118 U/L (45-117); Bilirubin, Total 0.3 mg/dL (0.2-1.0)
[2019-10-20] MEDS ORDERED: ALUM & MAG HYDROX-SIMETH LIQ(MAALOX) 30 ML PO PRN (19:30)
[2019-10-20] MEDS ORDERED: amLODIPine BESYLATE 5 MG TAB PO ONE (19:30)
[2019-10-20] MEDS ORDERED: LORazepam 0.5 MG TAB PO PRN (19:30)
[2019-10-20] MEDS ORDERED: FUROSEMIDE 100 MG/10ML VIAL IV ONE (19:30)
[2019-10-20] MEDS ORDERED: MORPHINE SULF INJ 2 MG/ML SYRINGE 1ML IV PRN ×2 (19:30)
[2019-10-20] MEDS ORDERED: HYDROcodone-ACET 5/325MG TAB PO PRN (19:30)
[2019-10-20] MEDS ORDERED: DOCUSATE SOD 100 MG CAP PO PRN (19:30)
[2019-10-20] MEDS ORDERED: NITROGLYCERIN 0.4 MG SL TAB SL PRN (19:30)
[2019-10-20] MEDS ORDERED: METOCLOPRAMIDE HCL 5MG/ml INJ 2ml VIAL IV PRN ×2 (19:30→21:15)
[2019-10-20] MEDS ORDERED: IPRATROPIUM BROM 0.5 MG/2.5ML INH SOL NEB PRN (20:00)
[2019-10-20] MEDS ORDERED: FAMOTIDINE 20 MG TAB PO ONE (20:00)
[2019-10-20] MEDS: POTASSIUM CHL 20 Meq TABLET PO SCH ×2 (20:00→22:00)
[2019-10-20 20:02] VITALS: BP 105/66
--- NOTE | 2019-10-20 20:05 | NUR ---
RT NOTE: PT ASSESSED FOR PRN MED NEB TX, PT DENIES SOB, BS CLEAR AND DECREASED. PT ON ROOM AIR SPO2 97%, HR 71, RR 16. PT NOTIFIED OF PRN MED NEB TX AND TO HAVE RT PAGED IF SOB OCCURS. PT VERBALIZED UNDERSTANDING.
[2019-10-20 20:07] LABS: Urine Bacteria NONE SEEN /hpf (None Seen); Urine Blood Negative /uL (Negative); Urine Specific Gravity 1.015 (1.001-1.035); Urine WBC <1 /hpf (0 - 5)
[2019-10-20] MEDS: ENOXAPARIN SOD 40 MG/0.4 ML SYRINGE SC SCH (20:11)
[2019-10-20 21:40] VITALS: BP 147/61
--- NOTE | 2019-10-20 21:40 | NUR ---
Telemetry admit from BAMBI MCKENZIE admitted to Telemetry unit after SBAR received. Patient oriented to BLAISE BOWERS, RN primary RN, unit, room, bed, and unit policies regarding patient care and visiting hours. Patient now on continuous telemetry monitoring, tele box # 32 and telemetry reading on arrival to unit is [id number]. Patient placed on bedside oxygen, weighed by bedscale and encouraged to call if they need something. All questions and concerns addressed, patient verbalized understanding.
--- NOTE | 2019-10-20 22:00 | NUR ---
Patient Refused Potassium Medication Patient refused 2200 potassium medication, she stated "I already got potassium pills down at the ER". Educated patient on the doctor's orders to received a second dose of potassium at 2200. Patient still refused medication.
[2019-10-20] MEDS: ATORVASTATIN 20 MG TAB PO SCH (22:29)
[2019-10-20] MEDS: FAMOTIDINE 20 MG TAB PO SCH (22:31)
[2019-10-20] MEDS: METOPROLOL TARTRATE 50 MG TAB PO SCH (22:31)
--- NOTE | 2019-10-20 23:00 | NUR ---
IV removal IV DC'd with clean sterile technique, catheter fully intact. Pressure dressing applied to site. Patient tolerated well.
--- NOTE | 2019-10-20 23:05 | NUR ---
IV insertion IV access obtained, via clean sterile technique by inserting 24 gauge catheter at after 2 attempt(s). IV secured properly. No trauma to site. Patient tolerated well.
[2019-10-21 05:00] VITALS: BP 121/51
[2019-10-21] MEDS: FUROSEMIDE 100 MG/10ML VIAL IV SCH ×2 (05:43→18:20)
[2019-10-21] MEDS: LEVOTHYROXINE SODIUM 50 MCG TAB PO SCH (06:21)
[2019-10-21 06:51] LABS: Basophils # (auto) 0.1 10 ^3/uL (0-0.2); Basophils % (auto) 1.3 % (0.0-2.0); Eosinophils # (auto) 0.4 10 ^3/uL (0-0.8); Eosinophils % (auto) 5.4 % (0.0-7.0); Hematocrit 37.9 % (36.0-46.0); Hemoglobin 12.8 g/dL (12.2-16.2); Lymphocytes # (auto) 2.7 10 ^3/uL (0.4-5.4); Lymphocytes % (auto) 39.3 % (10.0-50.0); Mean Corpuscular Hemoglobin 30.6 pg (28.0-32.0); Mean Corpuscular Hgb Conc. 33.9 g/dL (32.0-36.0); Mean Corpuscular Volume 90.5 fL (80.0-100.0); Monocytes # (auto) 0.5 10 ^3/uL (0-1.3); Monocytes % (auto) 7.7 % (0.0-12.0); Neutrophils # (auto) 3.2 10 ^3/uL (1.6-8.6); Neutrophils % (auto) 46.3 % (37.0-80.0); Platelet Count (auto) 272 10^3/uL (140-450); Red Blood Cells 4.19 10^6/uL (4.0-5.20); Red Cell Distribution Width 13.7 % (11.8-14.3); White Blood Cell 6.9 10^3/uL (4.4-10.8)
--- NOTE | 2019-10-21 06:56 | NUR ---
pt assessed for prn hhn tx. pt is on room air, spo2 96%. pt states she would like a tx at this time. 0.5 mg atrovent med enb administered. no adverse reactions to medication. lungs are diminished t/o bilat anterior lobes.
[2019-10-21 07:07] LABS: Calcium 8.5 mg/dL (8.5-10.1); Magnesium 2.2 mg/dL (1.6-2.6); Potassium 3.9 mmol/L (3.5-5.1)
[2019-10-21 07:13] LABS: Albumin 3.1 g/dL (3.4-5.0); BUN/Creatinine Ratio 16.5; Bilirubin, Total 0.6 mg/dL (0.2-1.0); Phosphorus 3.8 mg/dL (2.5-4.90); Total Protein 7.2 g/dL (6.4-8.2)
--- NOTE | 2019-10-21 07:30 | NUR ---
Closing Note Endorsed care to day shift nurse.
[2019-10-21 07:33] LABS: INR 0.97 (0.9-1.15); Partial Thromboplastin Time 30.2 sec (23.64-32.05)
[2019-10-21 09:00] VITALS: BP 122/66
[2019-10-21] MEDS: FAMOTIDINE 20 MG TAB PO SCH ×2 (09:46→21:49)
[2019-10-21] MEDS: METOPROLOL TARTRATE 50 MG TAB PO SCH ×2 (09:47→21:49)
[2019-10-21] MEDS: POTASSIUM CHL 20 Meq TABLET PO SCH (09:47)
[2019-10-21] MEDS: amLODIPine BESYLATE 5 MG TAB PO SCH (09:47)
[2019-10-21] MEDS ORDERED: CLOPIDOGREL BISULFATE 75 MG TAB PO SCH (10:00)
[2019-10-21 13:00] VITALS: BP 127/86
[2019-10-21] MEDS ORDERED: ACETAMINOPHEN 500 MG TAB PO PRN (15:30)
--- NOTE | 2019-10-21 16:59 | NUR ---
pPatient c/o acute headache 08/24 patient medicated (see emar for medication given)
[2019-10-21 17:00] VITALS: BP 128/70
[2019-10-21] MEDS: ENOXAPARIN SOD 40 MG/0.4 ML SYRINGE SC SCH (18:19)
[2019-10-21] MEDS: LEVALBUTEROL HCL 1.25 MG/3 ML NEB NEB SCH (18:30)
--- NOTE | 2019-10-21 18:55 | NUR ---
Doctor Jong haywooding, Per MD patients symptoms are not cardiac related and are associated with post nasal drip. Per md patient will be d/c tomorrow.
--- NOTE | 2019-10-21 19:40 | NUR ---
Opening Shift Note Assumed care of patient, awake and alert. No S/S of distress/SOB or pain. Instructed on POC and to call for assist PRN, will continue to monitor for changes Q1hr and PRN.
[2019-10-21 20:00] VITALS: BP 126/59
--- NOTE | 2019-10-21 20:10 | NUR ---
Dr. Rocha at bedside
[2019-10-21] MEDS: ATORVASTATIN 20 MG TAB PO SCH (21:48)
[2019-10-21 22:00] VITALS: BP 126/59
[2019-10-22 05:00] VITALS: BP 121/62
[2019-10-22] MEDS: FUROSEMIDE 100 MG/10ML VIAL IV SCH (05:53)
[2019-10-22] MEDS: LEVOTHYROXINE SODIUM 50 MCG TAB PO SCH (06:08)
--- NOTE | 2019-10-22 06:25 | NUR ---
LH IV removal IV DC'd with clean sterile technique, catheter fully intact. Pressure dressing applied to site. Patient tolerated well.
--- NOTE | 2019-10-22 06:30 | NUR ---
IV insertion IV access obtained, via clean sterile technique by inserting 22 gauge catheter at after attempts. IV secured properly. No trauma to site. Patient tolerated well.
[2019-10-22] MEDS: LEVALBUTEROL HCL 1.25 MG/3 ML NEB NEB SCH ×3 (06:41→11:55)
--- NOTE | 2019-10-22 07:08 | NUR ---
CLOSING NOTE CARE ENDORSED TO DAY SHIFT NURSE, PATIENT SLEEPING.
[2019-10-22 08:11] VITALS: BP 129/69
[2019-10-22 09:00] VITALS: BP 129/69
[2019-10-22] MEDS: FAMOTIDINE 20 MG TAB PO SCH (09:02)
[2019-10-22] MEDS: POTASSIUM CHL 20 Meq TABLET PO SCH (09:02)
[2019-10-22] MEDS: amLODIPine BESYLATE 5 MG TAB PO SCH (09:03)
[2019-10-22] MEDS: METOPROLOL TARTRATE 50 MG TAB PO SCH (09:05)
--- NOTE | 2019-10-22 13:50 | NUR ---
IV ACCESS DISCONTINUED. TELEMETRY BOX REMOVED AND RETURNED TO TELEMETRY DEPARTMENT
--- NOTE | 2019-10-22 14:01 | NUR ---
PATIENT DISCHARGED HOME INDEPENDENTLY. ALL DISCHARGE INSTRUCTIONS GIVEN. ALL DISCHARGE PAPERWORK SIGNED.
== END 2019-10-22 14:00 | disposition home or self-care (01) | DRG 204 ==
LOC: ER 17:48 → TELE 17:49 → TELE-CENTR 22:09
PROVIDERS: ADMIT Hospitalist; ATTEND Family Medicine
DX: R06.09 Other forms of dyspnea (principal); I69.351 Hemiplegia and hemiparesis following cerebral infarction affecting right dominant side; Z68.41 Body mass index [BMI] 40.0-44.9, adult; I11.0 Hypertensive heart disease with heart failure; E87.6 Hypokalemia; I27.20 Pulmonary hypertension, unspecified; E03.9 Hypothyroidism, unspecified; E78.00 Pure hypercholesterolemia, unspecified; E66.9 Obesity, unspecified; E78.5 Hyperlipidemia, unspecified; M19.90 Unspecified osteoarthritis, unspecified site; Z90.710 Acquired absence of both cervix and uterus; Z90.722 Acquired absence of ovaries, bilateral; Z95.5 Presence of coronary angioplasty implant and graft; Z98.51 Tubal ligation status; Z83.3 Family history of diabetes mellitus; Z85.41 Personal history of malignant neoplasm of cervix uteri; Z81.1 Family history of alcohol abuse and dependence; Z81.8 Family history of other mental and behavioral disorders; Z82.49 Family history of ischemic heart disease and other diseases of the circulatory system; Z80.8 Family history of malignant neoplasm of other organs or systems; Z79.899 Other long term (current) drug therapy; E11.40 Type 2 diabetes mellitus with diabetic neuropathy, unspecified; I50.9 Heart failure, unspecified
CPT/HCPCS: 36415; 70450; 71046; 80053; 80061; 81001; 83036; 83735; 83880; 84100; 84484; 85025; 85610; 85730; 93005; 94640; 96372; 96374; 97163; G0378

== ENCOUNTER → 2020-03-21 | Outpatient (CLI) | payer MEDICARE, MEDICAID ==
[~2020-03-21] MED LIST changes: -CLOP75TA28 PO
== END | disposition home or self-care (01) ==
LOC: LAB 14:45
PROVIDERS: ATTEND Internal Medicine
DX: E11.9 Type 2 diabetes mellitus without complications (principal); M10.9 Gout, unspecified; Z12.11 Encounter for screening for malignant neoplasm of colon
CPT/HCPCS: 36415; 82043; 84550

== ENCOUNTER → 2020-03-25 | Outpatient (CLI) | payer MEDICARE, MEDICAID ==
[2020-03-25 12:41] LABS: Basophils # (auto) 0.1 10 ^3/uL (0-0.2); Basophils % (auto) 0.9 % (0.0-2.0); Eosinophils # (auto) 0.2 10 ^3/uL (0-0.8); Eosinophils % (auto) 3.6 % (0.0-7.0); Hematocrit 40.9 % (36.0-46.0); Hemoglobin 13.6 g/dL (12.2-16.2); Lymphocytes # (auto) 1.7 10 ^3/uL (0.4-5.4); Lymphocytes % (auto) 27.5 % (10.0-50.0); Mean Corpuscular Hemoglobin 30.8 pg (28.0-32.0); Mean Corpuscular Hgb Conc. 33.4 g/dL (32.0-36.0); Mean Corpuscular Volume 92.4 fL (80.0-100.0); Monocytes # (auto) 0.5 10 ^3/uL (0-1.3); Monocytes % (auto) 8.1 % (0.0-12.0); Neutrophils # (auto) 3.7 10 ^3/uL (1.6-8.6); Neutrophils % (auto) 59.9 % (37.0-80.0); Platelet Count (auto) 299 10^3/uL (140-450); Red Blood Cells 4.42 10^6/uL (4.0-5.20); Red Cell Distribution Width 13.7 % (11.8-14.3); White Blood Cell 6.2 10^3/uL (4.4-10.8)
[2020-03-25 13:02] LABS: Potassium 3.2 mmol/L (3.5-5.1)
[2020-03-25 13:13] LABS: Albumin 3.8 g/dL (3.4-5.0); BUN/Creatinine Ratio 16.5; Bilirubin, Total 0.6 mg/dL (0.2-1.0); CRP High Sensitivity 1.34 mg/dL (< 0.3); Calcium 9.2 mg/dL (8.5-10.1); Total Protein 8.1 g/dL (6.4-8.2)
== END | disposition home or self-care (01) ==
LOC: LAB 12:14
PROVIDERS: ATTEND Internal Medicine
DX: I10 Essential (primary) hypertension (principal); E11.9 Type 2 diabetes mellitus without complications; M25.552 Pain in left hip; M54.5 Low back pain
CPT/HCPCS: 36415; 80053; 84443; 85025; 85652; 86141

== ENCOUNTER → 2020-03-30 | Day surgery (SDC) | payer MEDICARE, MEDICAID ==
[2020-03-25 12:40] LABS: Basophils # (auto) 0.1 10 ^3/uL (0-0.2); Basophils % (auto) 0.8 % (0.0-2.0); Eosinophils # (auto) 0.2 10 ^3/uL (0-0.8); Eosinophils % (auto) 3.6 % (0.0-7.0); Hemoglobin 13.8 g/dL (12.2-16.2); Lymphocytes # (auto) 1.8 10 ^3/uL (0.4-5.4); Lymphocytes % (auto) 28.7 % (10.0-50.0); Mean Corpuscular Hemoglobin 30.9 pg (28.0-32.0); Mean Corpuscular Hgb Conc. 33.5 g/dL (32.0-36.0); Mean Corpuscular Volume 92.2 fL (80.0-100.0); Monocytes # (auto) 0.4 10 ^3/uL (0-1.3); Neutrophils # (auto) 3.7 10 ^3/uL (1.6-8.6); Neutrophils % (auto) 59.9 % (37.0-80.0); Nucleated Red Blood Cells % 0.1 %; Platelet Count (auto) 302 10^3/uL (140-450); Red Blood Cells 4.45 10^6/uL (4.0-5.20); Red Cell Distribution Width 13.4 % (11.8-14.3); White Blood Cell 6.2 10^3/uL (4.4-10.8)
[2020-03-25 13:00] LABS: INR 0.96 (0.9-1.15); Partial Thromboplastin Time 27.3 sec (23.0-31.2)
[~2020-03-30] VITALS: Ht 154.9 cm; Wt 103.0 kg
[~2020-03-30] MED LIST changes: -METO-158 PO; +SODIUM CHLORIDE LOCK 10 ML ONE; +diphenhdrAMINE HCL 50 MG/1 ML VL ONE
[2020-03-30] MEDS: fentaNYL CITRATE 100 MCG/2 ML VL ONE ×2 (14:40→15:08)
[2020-03-30] MEDS: MIDAZOLAM HCL 5 MG/ML-1ML VIAL ONE ×2 (14:40→14:44)
[2020-03-30 15:30] VITALS: BP 141/60
== END | disposition home or self-care (01) ==
LOC: GI 12:31
PROVIDERS: ATTEND Internal Medicine Gastroenterology
DX: Z12.11 Encounter for screening for malignant neoplasm of colon (principal); D12.0 Benign neoplasm of cecum; K51.40 Inflammatory polyps of colon without complications; K63.89 Other specified diseases of intestine; K57.30 Diverticulosis of large intestine without perforation or abscess without bleeding; K64.8 Other hemorrhoids; I50.9 Heart failure, unspecified; G47.30 Sleep apnea, unspecified; E66.9 Obesity, unspecified; Z68.41 Body mass index [BMI] 40.0-44.9, adult; Z85.41 Personal history of malignant neoplasm of cervix uteri; Z98.51 Tubal ligation status; Z86.73 Personal history of transient ischemic attack (TIA), and cerebral infarction without residual deficits; Z90.710 Acquired absence of both cervix and uterus; Z88.8 Allergy status to other drugs, medicaments and biological substances; Z79.899 Other long term (current) drug therapy; Z20.828 Contact with and (suspected) exposure to other viral communicable diseases; Z88.1 Allergy status to other antibiotic agents
CPT/HCPCS: 36415; 45380; 45385; 85025; 85610; 85730; 88305; J2250; J3010; J7030; U0003; G0500

== ENCOUNTER → 2020-04-08 | Outpatient (CLI) | payer MEDICARE, MEDICAID ==
[~2020-04-08] MED LIST changes: -SODIUM CHLORIDE LOCK 10 ML ONE; -diphenhdrAMINE HCL 50 MG/1 ML VL ONE
[2020-04-08 10:50] LABS: Urine WBC None Seen /hpf (0 - 5)
[2020-04-08 11:19] LABS: Calcium 9.5 mg/dL (8.5-10.1); Potassium 3.3 mmol/L (3.5-5.1)
[2020-04-08 11:22] LABS: Urine Bacteria FEW /hpf (None Seen); Urine Blood Negative /uL (Negative); Urine Mucus FEW (None Seen); Urine Specific Gravity 1.022 (1.001-1.035)
== END | disposition home or self-care (01) ==
LOC: LAB 10:31
PROVIDERS: ATTEND Internal Medicine
DX: I10 Essential (primary) hypertension (principal); E11.39 Type 2 diabetes mellitus with other diabetic ophthalmic complication; E03.9 Hypothyroidism, unspecified
CPT/HCPCS: 36415; 80048; 81001; 84443

== ENCOUNTER → 2020-05-19 | Outpatient (CLI) | payer MEDICARE, MEDICAID ==
[2020-05-19 11:03] LABS: Calcium 9.1 mg/dL (8.5-10.1); Potassium 3.3 mmol/L (3.5-5.1)
[2020-05-19 11:09] LABS: BUN/Creatinine Ratio 15.2
== END | disposition home or self-care (01) ==
LOC: LAB 10:14
PROVIDERS: ATTEND Internal Medicine
DX: M79.89 Other specified soft tissue disorders (principal); M25.552 Pain in left hip
CPT/HCPCS: 36415; 80048; 82550; 85652

== ENCOUNTER 2020-07-03 19:34 | Inpatient (IN) | payer MEDICARE, MEDICAID ==
[~2020-07-03] VITALS: Ht 162.6 cm; Wt 102.1 kg
[~2020-07-03 19:34] MED LIST changes: +AMLO-496 PO; -AMLO10TA13 PO
[2020-07-03] MEDS: ASPirin 81 mg TAB PO ONE ×2 (20:32→21:28)
[2020-07-03 21:42] LABS: Albumin 3.5 g/dL (3.4-5.0); Anion Gap 6 (5-15); Blood Urea Nitrogen 15 mg/dL (7-18); Calcium 8.6 mg/dL (8.5-10.1); Carbon Dioxide 32 mmol/L (21-32); Chloride 101 mmol/L (98-107); Glucose 99 mg/dL (74-106); Magnesium 2.1 mg/dL (1.6-2.6); Potassium 3.2 mmol/L (3.5-5.1); Sodium 139 mmol/L (136-145)
[2020-07-03 21:43] LABS: Basophils # (auto) 0.1 10 ^3/uL (0-0.2); Basophils % (auto) 0.7 % (0.0-2.0); Eosinophils # (auto) 0.4 10 ^3/uL (0-0.8); Hematocrit 39.6 % (36.0-46.0); Hemoglobin 13.4 g/dL (12.2-16.2); Lymphocytes # (auto) 2.6 10 ^3/uL (0.4-5.4); Lymphocytes % (auto) 29.1 % (10.0-50.0); Mean Corpuscular Hemoglobin 31.3 pg (28.0-32.0); Mean Corpuscular Hgb Conc. 33.9 g/dL (32.0-36.0); Mean Corpuscular Volume 92.5 fL (80.0-100.0); Monocytes # (auto) 0.6 10 ^3/uL (0-1.3); Monocytes % (auto) 7.1 % (0.0-12.0); Neutrophils # (auto) 5.2 10 ^3/uL (1.6-8.6); Neutrophils % (auto) 59.1 % (37.0-80.0); Nucleated Red Blood Cells % 0.1 %; Red Blood Cells 4.28 10^6/uL (4.0-5.20); Red Cell Distribution Width 13.8 % (11.8-14.3); White Blood Cell 8.8 10^3/uL (4.4-10.8)
[2020-07-03 21:45] LABS: INR 0.93 (0.9-1.15); Partial Thromboplastin Time 27.2 sec (23.0-31.2)
[2020-07-03 21:49] LABS: Alanine Aminotransferase 16 U/L (13-56); Alkaline Phosphatase 134 U/L (45-117); Aspartate Aminotransferase 10 U/L (15-37); BUN/Creatinine Ratio 16.7; Bilirubin, Total 0.3 mg/dL (0.2-1.0); GFR African American 80 mL/min; GFR Non-African American 66 mL/min; Total Protein 8.3 g/dL (6.4-8.2)
[2020-07-03] MEDS ORDERED: ACETAMINOPHEN 325 MG TAB PO PRN (22:00)
[2020-07-03] MEDS ORDERED: TEMAZEPAM 15 MG CAP PO PRN (22:00)
[2020-07-03] MEDS ORDERED: MORPHINE SULFATE INJECTION 2 MG/ML SYRG IV PRN (22:00)
[2020-07-03] MEDS ORDERED: cloNIDine HCL 0.1 MG TAB PO PRN (22:00)
[2020-07-03] MEDS ORDERED: POTASSIUM CHL 20 Meq TABLET PO ONE (22:00)
[2020-07-03] MEDS ORDERED: ONDANSETRON HCL 4 MG/2 ML VIAL IV PRN (22:00)
[2020-07-03] MEDS ORDERED: NITROGLYCERIN 0.4 MG SL TAB SL PRN (22:00)
[2020-07-03] MEDS: FAMOTIDINE 20 MG TAB PO SCH (22:42)
[2020-07-03] MEDS: ATORVASTATIN 20 MG TAB PO SCH (22:42)
[2020-07-03 23:26] LABS: Urine Bacteria NONE SEEN /hpf (None Seen); Urine Blood Negative /uL (Negative); Urine Specific Gravity 1.008 (1.001-1.035); Urine WBC <1 /hpf (0 - 5)
[2020-07-04] MEDS: LEVOTHYROXINE SODIUM 25 MCG TAB PO SCH (07:00)
[2020-07-04] MEDS: LEVOTHYROXINE SODIUM 100 MCG TAB PO SCH (07:00)
[2020-07-04 08:54] LABS: Basophils # (auto) 0 10 ^3/uL (0-0.2); Basophils % (auto) 0.9 % (0.0-2.0); Eosinophils # (auto) 0.3 10 ^3/uL (0-0.8); Eosinophils % (auto) 5.4 % (0.0-7.0); Hematocrit 37.6 % (36.0-46.0); Lymphocytes # (auto) 1.5 10 ^3/uL (0.4-5.4); Lymphocytes % (auto) 26.9 % (10.0-50.0); Mean Corpuscular Hgb Conc. 34.4 g/dL (32.0-36.0); Monocytes # (auto) 0.5 10 ^3/uL (0-1.3); Monocytes % (auto) 9.2 % (0.0-12.0); Neutrophils # (auto) 3.3 10 ^3/uL (1.6-8.6); Neutrophils % (auto) 57.6 % (37.0-80.0); Nucleated Red Blood Cells % 0.1 %; Red Blood Cells 4.04 10^6/uL (4.0-5.20); Red Cell Distribution Width 13.8 % (11.8-14.3); White Blood Cell 5.7 10^3/uL (4.4-10.8)
[2020-07-04 09:04] LABS: Anion Gap 3 (5-15); Blood Urea Nitrogen 15 mg/dL (7-18); Calcium 8.7 mg/dL (8.5-10.1); Carbon Dioxide 30 mmol/L (21-32); Chloride 104 mmol/L (98-107); Glucose 105 mg/dL (74-106); Potassium 3.7 mmol/L (3.5-5.1); Sodium 137 mmol/L (136-145)
[2020-07-04 09:09] LABS: BUN/Creatinine Ratio 15.8; GFR African American 75 mL/min; GFR Non-African American 62 mL/min
[2020-07-04] MEDS: ASPirin 81 mg TAB PO SCH (10:05)
[2020-07-04] MEDS: HCTZ 25 MG TAB PO SCH (10:05)
[2020-07-04] MEDS: ENOXAPARIN SOD 40 MG/0.4 ML SYRINGE SC SCH (10:06)
[2020-07-04] MEDS: FAMOTIDINE 20 MG TAB PO SCH ×2 (10:06→21:38)
[2020-07-04] MEDS: amLODIPine BESYLATE 5 MG TAB PO SCH (10:06)
[2020-07-04] MEDS: ATORVASTATIN 20 MG TAB PO SCH (21:38)
[2020-07-05] MEDS: LEVOTHYROXINE SODIUM 25 MCG TAB PO SCH (06:48)
[2020-07-05] MEDS: LEVOTHYROXINE SODIUM 100 MCG TAB PO SCH (06:48)
[2020-07-05] MEDS: HCTZ 25 MG TAB PO SCH (07:45)
[2020-07-05] MEDS: ASPirin 81 mg TAB PO SCH (07:45)
[2020-07-05] MEDS: amLODIPine BESYLATE 5 MG TAB PO SCH (07:46)
[2020-07-05] MEDS: ENOXAPARIN SOD 40 MG/0.4 ML SYRINGE SC SCH (07:46)
[2020-07-05] MEDS: FAMOTIDINE 20 MG TAB PO SCH (07:46)
[2020-07-05] MEDS ORDERED: ADENOSINE 80 MG in GIVE UN-DILUTED 0 ML IV STA (08:29)
[2020-07-05 09:05] VITALS: BP 125/70
[2020-07-05] MEDS ORDERED: ASPI-543 PO (11:12)
[2020-07-05 12:54] VITALS: BP 142/71
== END 2020-07-05 15:05 | disposition home or self-care (01) | DRG 311 ==
LOC: ER 19:34 → TELE 19:35 → TELE-CENTR 07-05 09:55
PROVIDERS: ADMIT Nurse Practitioner; ATTEND Family Medicine
DX: I20.0 Unstable angina (principal); I50.32 Chronic diastolic (congestive) heart failure; E87.6 Hypokalemia; E66.01 Morbid (severe) obesity due to excess calories; E03.9 Hypothyroidism, unspecified; Z20.822 Contact with and (suspected) exposure to COVID-19; I11.0 Hypertensive heart disease with heart failure; E78.5 Hyperlipidemia, unspecified; C53.9 Malignant neoplasm of cervix uteri, unspecified; Z68.38 Body mass index [BMI] 38.0-38.9, adult; Z83.3 Family history of diabetes mellitus; Z82.49 Family history of ischemic heart disease and other diseases of the circulatory system; Z85.41 Personal history of malignant neoplasm of cervix uteri; Z86.73 Personal history of transient ischemic attack (TIA), and cerebral infarction without residual deficits; Z90.710 Acquired absence of both cervix and uterus
CPT/HCPCS: 36415; 70450; 71045; 78452; 80048; 80053; 81001; 83735; 83880; 84443; 84484; 85025; 85379; 85610; 85730; 87426; 93005; 93017; 93306; G0378; J0153

== ENCOUNTER → 2020-11-17 | Outpatient (CLI) | payer MEDICARE, MEDICAID ==
[~2020-11-17] MED LIST changes: +ASPI-543 PO
[2020-11-17 17:00] LABS: Albumin 3.3 g/dL (3.4-5.0); Calcium 8.7 mg/dL (8.5-10.1); Potassium 3.1 mmol/L (3.5-5.1); Uric Acid 7.8 mg/dL (2.6-6.0)
[2020-11-17 17:03] LABS: BUN/Creatinine Ratio 17.8; Bilirubin, Total 0.4 mg/dL (0.2-1.0); Total Protein 7.4 g/dL (6.4-8.2)
== END | disposition home or self-care (01) ==
LOC: LAB 15:17
PROVIDERS: ATTEND Internal Medicine
DX: I10 Essential (primary) hypertension (principal); E11.9 Type 2 diabetes mellitus without complications; M10.9 Gout, unspecified; E03.9 Hypothyroidism, unspecified; Z79.899 Other long term (current) drug therapy
CPT/HCPCS: 36415; 80053; 80061; 82306; 83036; 84443; 84550; 85652

== ENCOUNTER → 2021-05-17 | Outpatient (CLI) | payer MEDICARE, MEDICAID ==
[2021-05-17 11:19] LABS: Cholesterol 121 mg/dL (< 200); HDL Cholesterol 52 mg/dL (40-59); LDL Cholesterol 60 mg/dL (< 100); Triglycerides 67 mg/dL (< 150)
== END | disposition home or self-care (01) ==
LOC: LAB 10:00
PROVIDERS: ATTEND Internal Medicine
DX: E11.9 Type 2 diabetes mellitus without complications (principal)
CPT/HCPCS: 36415; 80061; 82043; 83036

== ENCOUNTER → 2021-05-24 | Outpatient (CLI) | payer MEDICARE, MEDICAID | END | disposition home or self-care (01) | LOC: LAB 11:29 | PROVIDERS: ATTEND Internal Medicine | DX: E11.9 Type 2 diabetes mellitus without complications (principal) | CPT/HCPCS: 82270 ==

== ENCOUNTER → 2021-07-28 | Outpatient (CLI) | payer MEDICARE, MEDICAID | END | disposition home or self-care (01) | LOC: LAB 09:42 | PROVIDERS: ATTEND Internal Medicine | DX: E11.9 Type 2 diabetes mellitus without complications (principal) | CPT/HCPCS: 36415; 83036 ==

== ENCOUNTER → 2021-10-11 | Outpatient (CLI) | payer MEDICARE, MEDICAID | END | disposition home or self-care (01) | LOC: LAB 07:20 | PROVIDERS: ATTEND Internal Medicine | DX: M54.2 Cervicalgia (principal); R51.9 Headache, unspecified | CPT/HCPCS: 36415; 82565; 84520 ==

== ENCOUNTER → 2021-12-28 | Outpatient (CLI) | payer MEDICARE, MEDICAID | END | disposition home or self-care (01) | LOC: LAB 10:06 | PROVIDERS: ATTEND Internal Medicine | DX: N18.2 Chronic kidney disease, stage 2 (mild) (principal); E55.9 Vitamin D deficiency, unspecified; M54.2 Cervicalgia | CPT/HCPCS: 36415; 84550; 85652; 86431 ==

== ENCOUNTER → 2022-06-12 | Outpatient (CLI) | payer MEDICARE, MEDICAID ==
[2022-06-12 14:13] LABS: Cholesterol 123 mg/dL (< 200)
[2022-06-12 14:16] LABS: HDL Cholesterol 51 mg/dL (40-59); LDL Cholesterol 69 mg/dL (< 100); Triglycerides 61 mg/dL (< 150)
== END | disposition home or self-care (01) ==
LOC: LAB 10:29
PROVIDERS: ATTEND Internal Medicine
DX: E11.9 Type 2 diabetes mellitus without complications (principal); E55.9 Vitamin D deficiency, unspecified; Z12.11 Encounter for screening for malignant neoplasm of colon
CPT/HCPCS: 36415; 80061; 82043; 83036; 84443

== ENCOUNTER → 2022-06-20 | Outpatient (CLI) | payer MEDICARE, MEDICAID | END | disposition home or self-care (01) | LOC: LAB 10:17 | PROVIDERS: ATTEND Internal Medicine | DX: E11.9 Type 2 diabetes mellitus without complications (principal); E55.9 Vitamin D deficiency, unspecified; Z12.11 Encounter for screening for malignant neoplasm of colon | CPT/HCPCS: 82270 ==

== ENCOUNTER → 2022-09-17 | Outpatient (CLI) | payer MEDICARE, MEDICAID | END | disposition home or self-care (01) | LOC: LAB 11:50 | PROVIDERS: ATTEND Internal Medicine | DX: E03.9 Hypothyroidism, unspecified (principal); R73.03 Prediabetes | CPT/HCPCS: 36415; 84443; 84550 ==

== ENCOUNTER → 2022-10-25 | Outpatient (CLI) | payer MEDICARE, MEDICAID | END | disposition home or self-care (01) | LOC: LAB 07:56 | PROVIDERS: ATTEND Internal Medicine | DX: R73.03 Prediabetes (principal) | CPT/HCPCS: 36415; 82043; 82550; 83036; 84443 ==

== ENCOUNTER → 2023-07-04 | Outpatient (CLI) | payer MEDICARE, MEDICAID ==
[~2023-07-04] MED LIST changes: -AMLO-496 PO; +AMLO1TAB23 PO
[2023-07-04 11:43] LABS: Creatinine, Urine 85.44 mg/dL (30.0-125.0)
[2023-07-04 11:46] LABS: Micro Albumin < 3.0 mg/L (<30.0)
[2023-07-04 11:55] LABS: Alanine Aminotransferase 12 U/L (7-40); Albumin 4.3 g/dL (3.2-4.8); Alkaline Phosphatase 108 U/L (46-116); Anion Gap 7 (5-15); Aspartate Aminotransferase 15 U/L (13-40); BUN/Creatinine Ratio 8.9 (10.0-20.0); Blood Urea Nitrogen 9 mg/dL (9-23); Calcium 9.8 mg/dL (8.5-10.1); Carbon Dioxide 29 mmol/L (20-30); Chloride 103 mmol/L (98-107); Cholesterol 193 mg/dL (< 200); Glucose 97 mg/dL (74-106); HDL Cholesterol 50 mg/dL (40-59); LDL Cholesterol 132 mg/dL (< 100); Potassium 4.4 mmol/L (3.5-5.1); Sodium 139 mmol/L (136-145); Triglycerides 77 mg/dL (< 150)
[2023-07-04 11:56] LABS: Bilirubin, Total 0.6 mg/dL (0.2-1.0); Total Protein 7.4 g/dL (5.7-8.2)
== END | disposition home or self-care (01) ==
LOC: LAB 09:23
PROVIDERS: ATTEND Internal Medicine
DX: E11.22 Type 2 diabetes mellitus with diabetic chronic kidney disease (principal); E78.5 Hyperlipidemia, unspecified; N18.9 Chronic kidney disease, unspecified
CPT/HCPCS: 36415; 80053; 80061; 82043; 82570; 83036

== ENCOUNTER → 2023-07-25 | Outpatient (CLI) | payer MEDICARE, MEDICAID ==
[2023-07-25 11:03] LABS: Albumin 4.3 g/dL (3.2-4.8); Bilirubin, Direct 0.1 mg/dL (<0.3); Bilirubin, Total 0.4 mg/dL (0.2-1.0); Total Protein 7.3 g/dL (5.7-8.2)
== END | disposition home or self-care (01) ==
LOC: LAB 09:26
PROVIDERS: ATTEND Internal Medicine
DX: E78.5 Hyperlipidemia, unspecified (principal)
CPT/HCPCS: 36415; 80076

== ENCOUNTER → 2023-10-23 | Outpatient (CLI) | payer MEDICARE, MEDICAID ==
[~2023-10-23] MED LIST changes: -ATO40T PO; +ATOR-507 PO
[2023-10-23 09:30] LABS: Bilirubin, Direct 0.1 mg/dL (<0.3)
[2023-10-23 09:32] LABS: Albumin 4.2 g/dL (3.2-4.8); Bilirubin, Total 0.4 mg/dL (0.2-1.0)
[2023-10-23 09:33] LABS: Total Protein 7.3 g/dL (5.7-8.2)
== END | disposition home or self-care (01) ==
LOC: LAB 08:07
PROVIDERS: ATTEND Internal Medicine
DX: E78.5 Hyperlipidemia, unspecified (principal)
CPT/HCPCS: 36415; 80061; 80076

== ENCOUNTER → 2024-09-08 | Outpatient (CLI) | payer MEDICARE, MEDICAID ==
--- NOTE | 2024-09-08 11:41 | DVH ---
US US GUIDANCE FOR NEEDLE PLACEME, HISTORY: LOCALIZED ENLARGED LYMPH NODES PROCEDURE: Informed consent was obtained. The patient was positioned supine on the table, and limited ultrasound was performed of the right axilla. The skin overlying the biopsy site was prepped with c hlorhexidine which was allowed to dry. Time out was performed. The entry site was anesthetized with 1 % lidocaine. A 18 gauge Biopince needle was advanced into the right axillary lymph node. Multiple cor e biopsy samples were obtained using the 18 gauge biopsy needle. The samples were sent to formalin to pathology for analysis. Imaging through the biopsy site was performed. No immediate complication wa s identified. FINDINGS: Intra-procedural images show the biopsy needle at the right axillary lymph node. No signif icant post biopsy hemorrhage is identified. IMPRESSION: US-guided biopsy of the right axillary lymphadenopathy . Pathology results pending.
== END | disposition home or self-care (01) ==
LOC: XYW 09:08
PROVIDERS: ATTEND Internal Medicine
DX: R59.0 Localized enlarged lymph nodes (principal); G47.30 Sleep apnea, unspecified; I50.9 Heart failure, unspecified; Z79.82 Long term (current) use of aspirin; Z79.899 Other long term (current) drug therapy; Z98.51 Tubal ligation status; Z85.42 Personal history of malignant neoplasm of other parts of uterus; Z85.41 Personal history of malignant neoplasm of cervix uteri; Z90.710 Acquired absence of both cervix and uterus; Z87.09 Personal history of other diseases of the respiratory system; Z80.1 Family history of malignant neoplasm of trachea, bronchus and lung; Z81.1 Family history of alcohol abuse and dependence; Z82.49 Family history of ischemic heart disease and other diseases of the circulatory system; Z81.0 Family history of intellectual disabilities; Z83.3 Family history of diabetes mellitus
CPT/HCPCS: 38505; 76881; 76942

== ENCOUNTER → 2024-09-09 | Outpatient (CLI) | payer MEDICARE, MEDICAID ==
[2024-09-09 07:41] LABS: Urine Bacteria None Seen /hpf (None Seen)
[2024-09-09 08:02] LABS: Basophils # (auto) 0 10 ^3/uL (0-0.2); Basophils % (auto) 0.8 % (0.0-2.0); Eosinophils # (auto) 0.3 10 ^3/uL (0-0.8); Eosinophils % (auto) 6.1 % (0.0-7.0); Hematocrit 39.9 % (36.0-46.0); Hemoglobin 13.3 g/dL (12.2-16.2); Lymphocytes # (auto) 1.7 10 ^3/uL (0.4-5.4); Lymphocytes % (auto) 32.7 % (10.0-50.0); Mean Corpuscular Hemoglobin 31.5 pg (28.0-32.0); Mean Corpuscular Hgb Conc. 33.4 g/dL (32.0-36.0); Mean Corpuscular Volume 94.2 fL (80.0-100.0); Monocytes # (auto) 0.5 10 ^3/uL (0-1.3); Monocytes % (auto) 9.3 % (0.0-12.0); Neutrophils # (auto) 2.7 10 ^3/uL (1.6-8.6); Neutrophils % (auto) 51.1 % (37.0-80.0); Nucleated Red Blood Cells % 0.1 %; Platelet Count (auto) 270 10^3/uL (140-450); Red Blood Cells 4.23 10^6/uL (4.0-5.20); White Blood Cell 5.2 10^3/uL (4.4-10.8)
[2024-09-09 08:11] LABS: Urine Blood Negative /uL (Negative); Urine Clarity Clear (Clear); Urine Color Light-Yellow (Yellow); Urine Protein, UAD Negative (Negative); Urine Specific Gravity 1.018 (1.001-1.035); Urine Squamous Epithelial Cell FEW /hpf (<5); Urine Urobilinogen Normal (Negative); Urine WBC < 1 /HPF (0-5); Urine pH 5.5 (5.0-9.0)
[2024-09-09 08:17] LABS: Albumin 4.3 g/dL (3.2-4.8); Alkaline Phosphatase 89 U/L (46-116); Anion Gap 10 (5-15); BUN/Creatinine Ratio 12.2 (10.0-20.0); Blood Urea Nitrogen 14 mg/dL (9-23); Calcium 9.6 mg/dL (8.7-10.4); Carbon Dioxide 28 mmol/L (20-31); Chloride 103 mmol/L (98-107); Potassium 3.9 mmol/L (3.5-5.1); Sodium 141 mmol/L (136-145); Total Protein 7.3 g/dL (5.7-8.2); Triglycerides 72 mg/dL (< 150)
[2024-09-09 08:18] LABS: Bilirubin, Total 0.4 mg/dL (0.2-1.0); Cholesterol 197 mg/dL (< 200); HDL Cholesterol 44 mg/dL (40-59)
[2024-09-09 08:19] LABS: Alanine Aminotransferase 9 U/L (7-40); Aspartate Aminotransferase 9 U/L (13-40); Glucose 110 mg/dL (74-106); LDL Cholesterol 140 mg/dL (< 100)
[2024-09-09 08:26] LABS: Creatinine, Urine 150.25 mg/dL (30.0-125.0)
[2024-09-09 08:28] LABS: Micro Albumin < 3.0 mg/L (<30.0); Microalb/Creat Ratio, Urine < 3.0
== END | disposition home or self-care (01) ==
LOC: LAB 07:20
PROVIDERS: ATTEND Internal Medicine
DX: N18.2 Chronic kidney disease, stage 2 (mild) (principal); E78.5 Hyperlipidemia, unspecified; M79.0 Rheumatism, unspecified; R73.03 Prediabetes; R05.9 Cough, unspecified
CPT/HCPCS: 36415; 80053; 80061; 81001; 82043; 82570; 82607; 83036; 84443; 85025

== ENCOUNTER → 2024-10-16 | Outpatient (CLI) | payer MEDICARE, MEDICAID | END | disposition home or self-care (01) | LOC: LAB 09:13 | PROVIDERS: ATTEND Internal Medicine | DX: D12.6 Benign neoplasm of colon, unspecified (principal); E11.40 Type 2 diabetes mellitus with diabetic neuropathy, unspecified; I27.20 Pulmonary hypertension, unspecified; E66.01 Morbid (severe) obesity due to excess calories | CPT/HCPCS: 84155; 84165 ==

== ENCOUNTER 2025-02-17 12:25 | Emergency (ER) | payer MEDICARE, MEDICAID ==
[~2025-02-17] VITALS: Ht 154.9 cm; Wt 100.1 kg
[2025-02-17 12:33] VITALS: TEMP 98.5
--- NOTE | 2025-02-17 13:04 | ED.PDOC ---
HPI Comments This is a 74 year old female presenting to the ED with chief complaint of HTN. Patient reports that her BP read very high this morning along with having associated chest pain and leg swelling. Patient's BP noted to be 196/83 in triage. Patient denies any numbness, weakness, tingling, SOB, headache, or dizziness. Chief Complaint: High Blood Pressure Time Seen by MD: 13:02 Primary Care Provider: MADIE Reviewed Notes: Nurses Notes, Medications, Allergies Allergies: Coded Allergies: Tetracycline (Verified Allergy, Unknown, 03/16/19) Home Meds Reported Medications Aspirin (Aspir-Low) 81 Mg Tab, 81 MG PO DAILY for 30 Days, MG 07/05/20 Levothyroxine Sodium (Levothyroxine Sodium) 125 Mcg Tab, 125 MCG PO QAM for 30 Days, MCG 03/16/19 Hydrochlorothiazide (Hydrochlorothiazide) 25 Mg Tab, 25 MG PO DAILY for 30 Days, MG 03/16/19 Amlodipine Besylate (Amlodipine Besylate) 10 Mg Tab, 1 TAB PO DAILY, #30 TAB 5 Refills 03/16/19 Atorvastatin Calcium (Lipitor) 40 Mg Tab, 40 MG PO HS, TAB 04/22/18 Information Source: Patient Mode of Arrival: Ambulatory Severity: Moderate Timing: Hours Duration: Since onset Prehospital treatment: None Location: Chest (L) Radiation: No Radiation Quality: Aching Onset: At Rest Cardiac Risk Factors: Hyperlipidemia, HTN PE Risk Factors: None Past Medical History PAST MEDICAL HISTORY: Cancer, High Lipids, HTN, Thyroid, TIA Surgical History: Hysterectomy, Tonsillectomy, Tubal Ligation HUM[employer] RESOURCE CONSULTANT History: Denies all [employer] RESOURCE CONSULTANT Hx, Other Family History Family History: Reviewed,noncontributory to illness, Family hx of DM Social History Smoker: Non-Smoker Alcohol: Denies ETOH Use Drugs: Denies Drug Use Lives In: Home Constitutional: denies: chills, diaphoresis, fatigue, fever, malaise, sweats, weakness, others EENTM: denies: blurred vision, double vision, ear bleeding, ear discharge, ear drainage, ear pain, ear ringing, eye pain, eye redness, hearing loss, mouth pain, mouth swelling, nasal discharge, nose bleeding, nose congestion, nose pain, photophobia, tearing, throat pain, throat swelling, voice changes, others Respiratory: denies: cough, hemoptysis, orthopnea, SOB at rest, shortness of breath, SOB with excertion, stridor, wheezing, others Cardiovascular: reports: chest pain, edema; denies: dizzy spells, diaphoresis, Dyspnea on exertion, irregular heart beat, left arm pain, lightheadedness, palpitations, PND, syncope, others Gastrointestinal: denies: abdomen distended, abdominal pain, blood streaked bowels, constipated, diarrhea, dysphagia, difficulty swallowing, hematemesis, melena, nausea, poor appetite, poor fluid intake, rectal bleeding, rectal pain, vomiting, others Genitourinary: denies: abnormal vagina bleeding, burning, dyspareunia, dysuria, flank pain, frequency, hematuria, incontinence, pain, , vagina discharge, urgency, others Neurological: denies: dizziness, fainting, headache, left sided numbness, left sided weakness, numbness, paresthesia, pre-existing deficit, right sided numbness, right sided weakness, seizure, speech problems, tingling, tremors, weakness, others Musculoskeletal: denies: back pain, gout, joint pain, joint swelling, muscle pain, muscle stiffness, neck pain, others Integumetry: denies: bruises, change in color, change in hair/nails, dryness, laceration, lesions, lumps, rash, wounds, others Allergic/Immunocompromised: denies: Difficulty Healing, Frequent Infections, Hives, Itching, others Hematologic/Lymphatic: denies: anemia, blood clots, easy bleeding, easy bruising, swollen glands, others Endocrine: denies: excessive hunger, excessive sweating, excessive thirst, excessive urination, flushing, intolerance to cold, intolerance to heat, unexplained weight gain, unexplained weight loss, others Psychiatric: denies: anxiety, bipolar disorder, depression, hopeless, panic disorder, schizophrenia, sleepless, suicidal, others All Other Systems: Reviewed and Negative Physical Exam General Appearance: No Apparent Distress, Obese HEENT: Normal ENT Inspection, PERRL/EOMI, Pharynx Normal, TMs Normal Neck: Full Range of Motion, Non-Tender, Normal, Normal Inspection Respiratory: Chest Non-Tender, Lungs Clear, No Accessory Muscle Use, No Respiratory Distress, Normal Breath Sounds Cardiovascular: No Edema, No JVD, No Murmur, No Gallop, Normal Peripheral Pulses, Regular Rate/Rhythm Breast Exam: Deferred Gastrointestinal: No Organomegaly, Non Tender, No Pulsatile Mass, Normal Bowel Sounds, Soft Genitalia: Deferred Pelvic: Deferred Rectal: Deferred Extremities: No calf tenderness, Normal capillary refill, Normal inspection, Normal range of motion, Non-tender, No pedal edema Musculoskeletal : Apperance: Normal Neurologic: Alert, hands and dial inspector II-XII nml as Tested, No Motor Deficits, Normal Affect, Normal Mood, No Sensory Deficits Cerebellar Function: Normal Reflexes: Normal Skin: Dry, Normal Color, Warm Peripheral Pulses: 1+ carotid (R), 1+ carotid (L) Lymphatic: No Adenopathy Was a procedure done? Was a procedure done?: No CP Differential Dx Differential Diagnosis: Anxiety / Panic Attack, Electrolyte Disorder, Renal Failure Differential Diagnosis: HTN Essential Differential Diagnosis: Chest Wall Pain, Costochondritis X-Ray, Labs, Meds, VS Vital Signs Date Time Temp Pulse Resp B/P (MAP) Pulse Ox O2 Delivery O2 Flow Rate FiO2 02/17/25 14:47 68 18 98 Room Air 02/17/25 14:47 68 18 177/76 (109) 98 02/17/25 13:15 177/76 02/17/25 12:33 98.5 84 16 196/83 99 98.5 Lab Test 02/17/25 13:16 Range/Units White Blood Count 6.8 4.4-10.8 10^3/uL Red Blood Count 4.24 4.0-5.20 10^6/uL Hemoglobin 12.9 12.2-16.2 g/dL Hematocrit 39.1 36.0-46.0 % Mean Corpuscular Volume 92.3 80.0-100.0 fL Mean Corpuscular Hemoglobin 30.5 28.0-32.0 pg Mean Corpuscular Hemoglobin Concent 33.1 32.0-36.0 g/dL Red Cell Distribution Width 13.6 11.8-14.3 % Platelet Count 298 140-450 10^3/uL Mean Platelet Volume 8.0 6.9-10.8 fL Neutrophils (%) (Auto) 57.7 37.0-80.0 % Lymphocytes (%) (Auto) 28.5 10.0-50.0 % Monocytes (%) (Auto) 7.9 0.0-12.0 % Eosinophils (%) (Auto) 5.0 0.0-7.0 % Basophils (%) (Auto) 0.9 0.0-2.0 % Neutrophils # (Auto) 3.9 1.6-8.6 10 ^3/uL Lymphocytes # (Auto) 1.9 0.4-5.4 10 ^3/uL Monocytes # (Auto) 0.5 0-1.3 10 ^3/uL Eosinophils # (Auto) 0.3 0-0.8 10 ^3/uL Basophils # (Auto) 0.1 0-0.2 10 ^3/uL Nucleated Red Blood Cells 0.1 % Sodium Level 143 136-145 mmol/L Potassium Level 4.0 3.5-5.1 mmol/L Chloride Level 108 H 98-107 mmol/L Carbon Dioxide Level 27 20-31 mmol/L Anion Gap 8 5-15 Blood Urea Nitrogen 17 9-23 mg/dL Creatinine 1.01 0.550-1.02 mg/dL Glomerular Filtration Rate Calc 59 >90 mL/min BUN/Creatinine Ratio 16.8 10.0-20.0 Serum Glucose 89 74-106 mg/dL Calcium Level 9.0 8.7-10.4 mg/dL Magnesium Level 1.7 1.6-2.6 mg/dL Troponin I High Sensitivity < 3 L </=34 ng/L Current Medications Medications (Trade) Dose Ordered Sig/Rosemarie Route Start Time Stop Time Status Last Admin Clonidine HCl ([id number] 7DAY Patch) 0.2 mg ONCE ONCE TD 02/17/25 13:15 02/17/25 13:16 DC 02/17/25 13:15 X-Ray, Labs, Meds, VS Comment Course in the emergency department eventful patient came to the emergency department for uncontrolled high blood pressure EKG pending Chest x-ray normal CBC normal CMP negative Magnesium 1.7 Troponin three Patient will be discharged to follow up with her PCP Time of 1ST Reevaluation: 14:02 Reevaluation 1ST: Unchanged Time of 2ND Reevaluation: 14:58 Reevaluation 2ND: Improved Consultation: PCP Patient Education/Counseling: Diagnosis, Treatment, Prognosis, Need For Follow Up Family Education/Counseling: Diagnosis, Treatment, Prognosis, Need For Follow Up, No Family Present SEPSIS Sepsis Screen Date sepsis recognized/suspect: Feb 17, 2025 Time Sepsis recognized/suspect: 123 Recent Procedure: No On Antibiotic Therapy: No Respiratory Rate >20: No Heart Rate >90: No Temp<36 C (96.8 F) or >38.3 C: No SBP <90 or MAP <65 mmHG: No New Acute Mental Status Change: No Is the patient on CPAP, BIPAP,: No Physician Orders Urinalysis (02/17/25 13:03) Chest Two Views Routine (02/17/25 13:03) Heplock Iv (02/17/25 13:03) Electrocardigram (02/17/25 13:03) Vital Signs Date Time Temp Pulse Resp B/P (MAP) Pulse Ox O2 Delivery O2 Flow Rate FiO2 02/17/25 14:47 68 18 98 Room Air 02/17/25 14:47 68 18 177/76 (109) 98 02/17/25 13:15 177/76 02/17/25 12:33 98.5 84 16 196/83 99 98.5 Laboratory Tests Test 02/17/25 13:16 White Blood Count 6.8 10^3/uL (4.4-10.8) Medications Medications Dose Ordered Sig/Rosemarie Route Start Time Stop Time Status Last Admin Dose Admin Clonidine HCl 0.2 mg ONCE ONCE TD 02/17/25 13:15 02/17/25 13:16 DC 02/17/25 13:15 Departure 1 Departure Time of Disposition: 15:02 Impression: Primary Impression: Uncontrolled hypertension Disposition: 01 HOME / SELF CARE / HOMELESS Condition: Fair Additional Instructions: Follow up with your PCP e-Prescriptions Olmesartan Medoxomil (Benicar) 20 Mg Tab 1 TAB PO DAILY for 30 Days, #30 TAB 5 Refills Prov: MADHURI LITTLE MD 02/17/25 Discharged With: Self Critical Care Note Critical Care Time?: No Stability Stability form required: No Heart Score Heart Score: Heart Score Response (Comments) Value History Slightly Suspicious 0 EKG Normal 0 Age >65 2 Risk Factors >3 or Hx ASHD 2 Troponin Normal limit 0 Total 4 I personally scribed for MADHURI LITTLE MD ([email or web address]) on 02/17/25 at 13:04. Electronically submitted by Earl Elizalde ([email or web address]). MADHURI LITTLE MD Feb 17, 2025 13:04
[2025-02-17] MEDS: cloNIDine 0.2 mg/24hr 7DAY PATCH TD ONE (13:15)
[2025-02-17 13:31] LABS: Hematocrit 39.1 % (36.0-46.0); Hemoglobin 12.9 g/dL (12.2-16.2); Mean Corpuscular Hemoglobin 30.5 pg (28.0-32.0); Mean Corpuscular Volume 92.3 fL (80.0-100.0); Nucleated Red Blood Cells % 0.1 %
--- NOTE | 2025-02-17 13:39 | DVH ---
CHEST RADIOGRAPH Indication: Uncontrolled high blood pressure Technique: Frontal and lateral view of the chest was obtained Comparison: XY CHEST TWO VIEWS ROUTINE on DOS: 07/03/24, PCP6 on DOS: 05/31/22, CHEST TWO VIEWS ROUTIN E on DOS: 08/08/21, CHEST PORTABLE on DOS: 07/03/20, CHEST TWO VIEWS ROUTINE on DOS: 10/20/19 FINDINGS: Lines and Tubes: None Lungs: Clear Pleura: No effusion. No pneumothorax. Cardiomediastinal contours: Unremarkable Bones: Unremarkable IMPRESSION: No evidence of acute disease.
[2025-02-17 13:42] LABS: Potassium 4.0 mmol/L (3.5-5.1); Sodium 143 mmol/L (136-145)
[2025-02-17 13:43] LABS: Anion Gap 8 (5-15); Calcium 9.0 mg/dL (8.7-10.4); Carbon Dioxide 27 mmol/L (20-31); Chloride 108 mmol/L (98-107)
[2025-02-17 13:48] LABS: BUN/Creatinine Ratio 16.8 (10.0-20.0); Blood Urea Nitrogen 17 mg/dL (9-23); Glucose 89 mg/dL (74-106); Magnesium 1.7 mg/dL (1.6-2.6)
[2025-02-17 14:47] VITALS: BP 177/76; RESP 18; O2SAT 98
[2025-02-17] MEDS ORDERED: OLME20TA53 PO (15:04)
[2025-02-17 15:08] VITALS: PULSE 67
--- NOTE | 2025-02-17 15:09 | ECG ---
[facility] Test Date: 2025-02-17 Test Time: 15:08:11 Pat Name: BAMBI MCKENZIE Department: ED Room: Gender: F Beverage Host: gato : 1950 Requested By: MADHURI LITTLE Order Number: [id number] Reading MD: Anthony Mcgowan Measurements Intervals [place] Rate: 67 P: 63 RI: 152 QRS: 39 QRSD: 80 T: 47 QT: 400 QTc: 423 Interpretive Statements Sinus rhythm Electronically Signed On 02-18-2025 17:02:57 PDT by Anthony Mcgowan Please click the below link to view image of tracing.
== END 2025-02-17 15:58 | disposition home or self-care (01) ==
LOC: ER 12:25
DX: I10 Essential (primary) hypertension (principal); E78.5 Hyperlipidemia, unspecified; Z79.899 Other long term (current) drug therapy; Z79.890 Hormone replacement therapy; Z79.82 Long term (current) use of aspirin; Z85.850 Personal history of malignant neoplasm of thyroid; Z86.73 Personal history of transient ischemic attack (TIA), and cerebral infarction without residual deficits; Z88.1 Allergy status to other antibiotic agents; Z90.710 Acquired absence of both cervix and uterus
CPT/HCPCS: 36415; 71046; 80048; 83735; 84484; 85025; 93005

== ENCOUNTER 2025-03-19 08:30 | Day surgery (SDC) | payer MEDICARE, MEDICAID ==
[2025-03-16 11:18] LABS: Hematocrit 38.5 % (36.0-46.0); Hemoglobin 13.3 g/dL (12.2-16.2); Mean Corpuscular Hemoglobin 30.9 pg (28.0-32.0); Mean Corpuscular Volume 89.7 fL (80.0-100.0); Nucleated Red Blood Cells % 0.1 %
[2025-03-16 11:37] LABS: INR 0.95 (0.9-1.15); Partial Thromboplastin Time 29.1 SEC (24.5-34.5); Prothrombin Time 10.1 sec (9.3-11.8)
[2025-03-16 11:53] LABS: Alkaline Phosphatase 107 U/L (46-116); Anion Gap 10 (5-15); BUN/Creatinine Ratio 10.4 (10.0-20.0); Blood Urea Nitrogen 10 mg/dL (9-23); Calcium 9.7 mg/dL (8.7-10.4); Carbon Dioxide 29 mmol/L (20-31); Chloride 104 mmol/L (98-107); Glucose 92 mg/dL (74-106); Potassium 4.1 mmol/L (3.5-5.1); Sodium 143 mmol/L (136-145); Total Protein 7.7 g/dL (5.7-8.2)
[2025-03-16 11:54] LABS: Albumin 4.4 g/dL (3.2-4.8); Bilirubin, Total 0.6 mg/dL (0.2-1.0)
[2025-03-16 11:57] LABS: Alanine Aminotransferase < 9 U/L (7-40)
[~2025-03-19] VITALS: Ht 154.9 cm; Wt 99.8 kg
[~2025-03-19 08:30] MED LIST changes: -AMLO1TAB23 PO; -ATOR-507 PO; -HYDR25TA4 PO; -LEVO125T7 PO; +LEVO200C3 PO; +LOSA50TA27 PO; +OLME20TA53 PO
[2025-03-19] MEDS ORDERED: MIDAZOLAM HCL 5 MG/ML-1ML VIAL ONE (10:12)
[2025-03-19] MEDS ORDERED: SODIUM CHLORIDE LOCK 0 ML ONE (10:12)
[2025-03-19] MEDS ORDERED: fentaNYL CITRATE 100 MCG/2 ML VL ONE ×2 (10:13→10:36)
[2025-03-19] MEDS ORDERED: diphenhdrAMINE HCL 50 MG/1 ML VL ONE (10:13)
[2025-03-19] MEDS ORDERED: PROPOFOL 10 MG/ML 20 ML IV ONE (10:50)
[2025-03-19 10:51] VITALS: PULSE 82; RESP 16; TEMP 97.7; O2SAT 98
[2025-03-19 11:21] VITALS: BP 149/88; PULSE 78; RESP 16; O2SAT 96
--- NOTE | 2025-03-19 16:23 | DVHOP2 ---
Operative Report DATE OF OPERATION: 03/19/25 PROCEDURE: Colonoscopy with cold biopsy polypectomy. PREOPERATIVE INDICATION: The patient is a 74 -year-old female undergoing colonoscopy for colon cancer surveillance with personal history of colon polyps POSTOPERATIVE DIAGNOSES: 1. Patient had a 2-3 mm benign-appearing ascending colon polyp that was seen and removed completely via cold biopsy forceps 2. There was mild scattered diverticular disease most prominent in the sigmoid mild tortuosity of the colon 3. Trace internal hemorrhoids otherwise completely normal colonoscopy examination up to the cecum PROCEDURE PERFORMED BY: Belem Richmond M.D. SCOPE: Olympus videocolonoscope. ASA CLASS: 2. PREOPERATIVE MEDICATIONS: Dr. Mechelle Temple PROCEDURE IN DETAIL: After obtaining an informed consent, the patient was placed on left lateral decubitus position. She was then sedated with the above medications. A rectal examination was performed that was normal. The colonoscope was then passed through the anus into the rectosigmoid and through the descending, transverse, and ascending colon up to the cecum with visualization of the appendiceal orifice, base of the cecum and the ileocecal valve. The colonoscope was then withdrawn. There was a 3 mm benign-appearing ascending colon polyp This was removed completely via cold biopsy forceps. No other polyps or masses were seen Patient had mild scattered diverticular disease most prominent in the sigmoid. On retroflexion and straight on view she had trace internal hemorrhoids. The patient tolerated the procedure well without difficulty. WITHDRAWAL TIME: 10 minutes QUALITY OF THE PREP: [place] Bowel Prep score: 9. COMPLICATIONS : None SPECIMENS: Ascending colon polyp DISPOSITION: Stable D/C to home PLAN: 1. Repeat colonoscopy in 3-5 years 2. Resume GI soft diet advance as tolerated 3. Outpatient follow up with me in 4-6 weeks to review results and discuss further management BELEM RICHMOND MD Mar 19, 2025 16:23
== END 2025-03-19 11:38 | disposition home or self-care (01) ==
LOC: GI 08:30
PROVIDERS: ATTEND Internal Medicine Gastroenterology
DX: Z12.11 Encounter for screening for malignant neoplasm of colon (principal); K57.30 Diverticulosis of large intestine without perforation or abscess without bleeding; D12.2 Benign neoplasm of ascending colon; K64.8 Other hemorrhoids; Z86.0100 Personal history of colon polyps, unspecified; I10 Essential (primary) hypertension; E66.9 Obesity, unspecified; E03.9 Hypothyroidism, unspecified; Z79.899 Other long term (current) drug therapy; Z98.890 Other specified postprocedural states
CPT/HCPCS: 36415; 45380; 80053; 85025; 85610; 85730; 88305; J2704; J3010; J7030; J2250

== ENCOUNTER → 2025-04-07 | Outpatient (CLI) | payer MEDICARE, MEDICAID ==
[2025-04-07 12:22] LABS: Cholesterol 172.0 mg/dL (< 200)
[2025-04-07 12:24] LABS: Triglycerides 64.0 mg/dL (< 150)
[2025-04-07 12:26] LABS: HDL Cholesterol 43.0 mg/dL (40-59)
[2025-04-07 13:23] LABS: Uric Acid 5.9 mg/dL (3.1-7.8)
== END | disposition home or self-care (01) ==
LOC: LAB 10:33
PROVIDERS: ATTEND Internal Medicine
DX: E11.22 Type 2 diabetes mellitus with diabetic chronic kidney disease (principal); N18.32 Chronic kidney disease, stage 3b; E11.40 Type 2 diabetes mellitus with diabetic neuropathy, unspecified; E78.5 Hyperlipidemia, unspecified; D12.6 Benign neoplasm of colon, unspecified
CPT/HCPCS: 36415; 80061; 82306; 82607; 83036; 84443; 84550

== ENCOUNTER 2025-05-28 09:26 | Outpatient (CLI) | payer MEDICARE, MEDICAID ==
[2025-05-28 10:56] LABS: Alanine Aminotransferase 25.0 U/L (7-40)
[2025-05-28 10:58] LABS: Total Protein 7.5 g/dL (5.7-8.2)
[2025-05-28 10:59] LABS: Albumin 4.3 g/dL (3.2-4.8); Bilirubin, Direct 0.2 mg/dL (<0.3); Creatine Kinase IFCC 50.0 U/L (34-145)
[2025-05-28 11:00] LABS: Bilirubin, Total 0.5 mg/dL (0.2-1.0)
[2025-05-28 11:03] LABS: Alkaline Phosphatase 166.0 U/L (46-116)
== END 2025-05-28 17:00 | disposition home or self-care (01) ==
LOC: LAB 09:26
PROVIDERS: ATTEND Internal Medicine
DX: E78.5 Hyperlipidemia, unspecified (principal)
CPT/HCPCS: 36415; 80076; 82550